=== PATIENT | female | born 1945 | race Caucasian/White ===

== ENCOUNTER 2022-04-10 15:55 | Outpatient (CLI) | payer MEDICARE, SELFPAY ==
--- OUTSIDE RECORDS SUMMARY | 2022-04-10 16:01 | XMS_ITS | Clinical Summary ---
:1945 Author Organization [facility] [place] [address] Care Team Providers Name Role Phone John Harley Unavailable Christen Christiansen DO Primary Care Provider Allergies Active Allergy Reactions Severity Noted Date Comments Alendronate Sodium Nausea Only 05/12/2019 Medications Medication Sig Dispensed Refills Start End Date Status Date polyethylene glycol Take 17 g by mouth 0 Active (MIRALAX; GLYCOLAX) 17 g once daily. 4 powder for solution docusate (COLACE) 100 mg Take 1 capsule by 0 01 Active capsule mouth once daily. 6 medication order -Magnesium Citrate by Pure E ncapsulations 150 mg for sleep and constipation: Take 2 capsules at bedtime. Can increase to 3 capsules nightly. 0 Active composerIndications: -Jarrows Bone Up Ultra: Take 2 capsules three times daily with meals. 1 Age-related osteoporosis or, continue your: without fracture, Vitamin -Shaklee Osteomatrix: Take 2 caps twice daily with food. D deficiency, -Shaklee Elizabeth-Nany multivitam in: Take 1 tablet daily. (vit D 500 IU) Prediabetes, Hyperlipidemia, unspecified hyperlipidemia type, Primary insomnia Multivitamins with 0 A ctive Fluoride (MULTI-VITAMIN ORAL) atorvastatin (LIPITOR) 20 Take 1 Tablet (20 90 Tablet 3 Active mg tabletIndications: mg) by mouth at 2 Pure hypercholesterolemia bedtime. 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 Prediabetes 03/06/2012 Age-related osteoporosis without current pathological fracture 04/06/2011 Overview: Dx and started on alendronate 03/2018. D id not tolerate. Started on Actonel. ACP (advance care planning) 03/15/2011 Left gluteus medius tendinosis 02/28/2011 Left lumbar radiculitis 02/28/2011 Degeneration of lumbar or lumbosacral intervertebral d isc 02/28/2011 SI (sacroiliac) pain 11/30/2010 Hammertoe 11/06/2010 Screen for colon cancer 02/21/2010 Overview: Colonoscopy 01/2010 normal repeat in 10 y ears Presbyopia 02/28/2007 VITREOUS DEGENERATION-R>L 09/08/2004 HYPERCHOLESTEROLEMIA, PURE 11/28/2000 Constipation - functional 11/28/2000 LEIOMYOMA, UTERUS NOS 01/26/2000 STATE, FEMALE CLIMACTERIC 01/26/2000 Resolved Problems Problem Noted Date Resolved Date Hyperlipidemia 09/13/2020 02/23/2021 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 12/23/2017 PAIN IN JOINT, SHOULDER 05/22/2005 MALAISE AND FATIGUE NEC 05/22/2005 EPICONDYLITIS, LATERAL 05/22/2005 FIBROMATOSIS, PLANTAR FASCIAL 05/22/2005 Encounters Date Type Specialty Care Team Description 03/20/2022 Office Visit [address] G[address] RD Medical Nutrition Therapy; Telehealth 03/19/2022 Travel 01/31/2022 Office Visit Christen Christiansen, DO Medic ation Management; Fatigue 01/30/2022 Travel from Last 3 Months Immunizations Name Administration Dates Next Due AMB INFLUENZA IIV3 (AGE 65+ YRS) PF 03/19/2018, 03/20/2017 (Flu Clinic Only) AMB Influenza, IIV3 (Age >=3 04/13/2011, 04/18/2010, 008 years)(Flu Clinic Only) Amb Influenza, Inact (High-dose) (Flu 03/22/2014 Clinic Only) COVID-19 vaccine ([employer] 01/09/2022, 04/20/2021, , 30mcg/0.3mL) PF, MDV 08/13/2020 Influenza Virus, Unspecified 03/19/2022 Influenza, High-dose Inactivated 04/01/2019, 03/09/2016, Influenza, High-dose Quadrivalent 03/07/2021 Inactivated Influenza, IIV3 (Age >=3 years) 04/15/2013, 03/28/2012, 04/01, 05/02/2006, 04/24/2005, 04/19/2003 Influenza, IIV4 04/01/2019 Influenza, Inactivated AIIV4 (Age 65+ 03/07/2021, 03/09/2020 Years) Preserv Free Pneumococcal Poly,23-Valent 11/26/2008 (Pneumovax) Pneumococcal conj 13-Valent (Prevnar 07/29/2015 13) Td (Age >=7 Years) 05/22/2005 Td, Preservative Free (age >= 7 10/26/2015 Years) Zoster (Shingrix-RZV, recombinant) 01/20/2019, 10/21/2018 Zoster (Zostavax-ZVL, live) 11/07/2011 Family History Medical History Relation Name Comments Brain cancer Brother 2 Survived gliobla stoma 20 yrs. Dementia now. Other Brother 3 MVA Alcoholism Brother 4 Cancer Father Other Father blood cancer, AA A Diabetes Grandchild Cancer-breast Maternal Aunt age 76 Stroke Mother several Genetic Other Mother: HTN, CVA , hyperchol, dec @ 83 of pneumonia s/p ba d CVA~Father: AAA, bladder CA, dec @ 82 of meta static bladder CA, OA~Son: TI DM at 7yo~cataract- Father~Grandson: TI DM at 11yo~Grpr: CAD, ovarian CA in 90s, colon CA in 80s~Bro: CAD dx in 40s* Hyperlipidemia Sister Diabetes Son Relation Name Status Comments Brother 1 Alive Brother 2 Alive Brother 3 Brother 4 Father Grandchild Maternal Aunt Maternal Grandfather Maternal Grandmother Mother Other Paternal Grandfather Paternal Grandmother Sister Alive Son Social History Tobacco Use Types Packs/Day Years Used Date Never Smoker 0 Smokeless Tobacco: Never Used Tobacco Cessation: Counseling Given: No Alcohol Use Standard Drinks/Week Comments Yes 2 (1 standard drink = 0.6 oz pure 1 glas s of wine 1-2 times a month alcohol) Alcohol Habits Answer Date Recorded How often do you have a drink Not asked containing alcohol? How many drinks containing alcohol do Not asked you have on a typical day when you are drinking? How often do you have six or more Not asked drinks on one occasion? Comment: 1 glass of wine 1-2 times a month 2020 Sex Assigned at Date Recorded Not on file COVID-19 Exposure Response Date Recorded In the last 10 days, have you been in contact with No / Unsu re 03/19/2022 1:04 PM CDT someone who was confirmed or suspected to have Coronavirus/COVID-19? 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 Respiratory Rate 15 09/18/2021 1:50 PM CDT Oxygen Saturation 96% 02/24/2021 2:14 PM CDT Inhaled Oxygen Concentration - - Weight 85.3 kg (188 lb) 01/31/2022 8:44 AM CDT Height 163.8 cm (5' 4.5) 09/18/2021 1:50 PM CDT Body Mass Index 31.77 09/18/2021 1:50 PM CDT Plan of Treatment Upcoming Encounters Date Type Specialty Care Team Description 04/13/2022 Orders Only [facility] Health Maintenance Due Date Last Done Comments Tdap 1956 COVID-19 vaccine series (5 - 03/06/2022 01/09/2022, 021, Booster for Pfizer series) 09/03/2020, Additiona l history exists BMI (ht and wt on same day) for 09/18/2022 09/18/2021, 01/30, age 18+ 07/12/2020, Additional history exists Depression screening for age 12+ 09/18/2022 09/18/2021, , 07/12/2020, Additional history exists Medicare Wellness for age 65+ 09/18/2022 09/18/2021, 2020, 05/12/2019, Additional history exists Tetanus booster 10/25/2025 10/26/2015, 05/22/2005 Pneumococcal series for age 65+ Completed 07/29/2015, 10/30 Zoster (shingles) series for age Completed 01/20/2019, , 50+ 11/07/2011 DEXA/DXA scan for age 65+ Completed 10/03/2020, 04/22/2018 , 06/03/2014, Additional history exists Hepatitis C screening for age Completed 01/31/2022 18-79 Influenza for age 65+ Completed 03/19/2022, 03/07/2021, 03/07/2021, Additional history exists Procedures Procedure Name Priority Date/Time Associated Diagnosis Comme nts ANTI HCV Routine 01/31/2022 9:24 AM Need for hepatitis C R esults for this CDT screening test procedure are in the results section. HEMOGLOBIN A1C Routine 01/31/2022 9:24 AM Prediabetes Results for this SCREENING CDT procedure are i n the results section. from Last 3 Months Results HEMOGLOBIN A1C SCREENING (01/31/2022 9:24 AM CDT) P athologist Signature HEMOGLOBIN A1C 6.0 <=6.4 % 01/31/2022 [facility] SCREENING 7:37 PM CDT LABORATORY-CENT RAL LABORATORY Specimen Anatomical Collection Method / Collection Time Recei juany Time (Source) Location / Volume Laterality Blood BLOOD SPECIMEN / Venipuncture / 01/31/2022 9:24 2021 9:24 Unknown Unknown AM CDT AM CDT Narrative [facility] LABORATORY-CENTRAL LABORAT ORY - 01/31/2022 7:37 PM CDT ? (<5.7%) ?Normal ? (5.7% to 6.4%) ? Indicates pr ediabetes ? (>=6.5%) ? Confirms diabetes Falsely low levels may be seen with: Recent Transfusion, Recent Significant B lood Loss, Hemolytic Diseases, or Falsely elevated levels may be seen with : Untreated Anemias, Splenectomy Christen Christiansen DO CHEMISTRY Performing Organization Address City/[facility]/ZIP Code Phon e Number [facility] [id number] [facility] [place] [address] LABORATORY-CENTRAL 2000 LABORATORY ANTI HCV (01/31/2022 9:24 AM CDT) [facility] gist Method Time Signature HEPATITIS C Non-Reacti Non-Reacti 02/01/2022 [facility] ANTIBODY ve ve 6:44 PM CDT LABORATORY-[facility] TR[facility] LABORATORY Comment: Antibodies to HCV not detected; does not exclude the possibility of exposure to HCV. Specimen Anatomical Collection Method / Collection Time Recei juany Time (Source) Location / Volume Laterality Blood BLOOD SPECIMEN / Venipuncture / 01/31/2022 9:24 2021 9:24 Unknown Unknown AM CDT AM CDT Christen Christiansen DO SEND OUTS Performing Organization Address City/State[place] [facility] [place] [facility] [id number] [place] [address] LABORATORY-CENTRAL 2000 LABORATORY from Last 3 Months Insurance Payer Benefit Plan / Subscriber ID Effective Dates Phone Addre ss Type Group MEDICARE PART A - MEDICARE PART A [id number] 2008-Prese ATTN: CLAIMS HB USE ONLY HB ONLY nt [address] 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
--- NOTE | 2022-04-10 16:15 | CRLHL7_ITS ---
For Patients: As a result of the Cures Act, medical imaging exams and procedure reports are released immediately into your electronic medical record. You may view this report before your referring provider. If you have questions, please contact your health care provider. BILATERAL SCREENING MAMMOGRAM WITH COMPUTER-AIDED DETECTION AND TOMOSYNTHESIS TECHNIQUE: CC and MLO views were obtained. These mammographic images have been obtained using full-field digital technique. These mammographic images were interpreted with the benefit of computer-aided detection. Breast Tomosynthesis was used in this interpretation. COMPARISON FILM: 03/22/21, 03/21/20, 02/03/19. FINDINGS: There are scattered areas of fibroglandular density IMPRESSION: There is no radiographic evidence for malignancy. ASSESSMENT: BI-RADS Category 1: Negative RECOMMENDATION: Routine screening mammogram in 1 year. A lay language report of this examination will be provided to the patient. Nasir Marques M.D. Diagnostic Radiologist [email or web address] VIVIANA/talib / be/Dictated by: Nasir Marques MD @ 04/11/2022 11:02:00 AM (Electronically Signed)
== END 2022-04-10 15:56 | disposition home or self-care (01) ==
LOC: MAMMO 15:59
PROVIDERS: Visit Provider Family Medicine
DX: Z12.31 Encounter for screening mammogram for malignant neoplasm of breast (principal)
CPT/HCPCS: 77063; 77067

== ENCOUNTER 2022-06-12 10:30 | Outpatient (RCR) | payer MEDICARE, SELFPAY ==
--- NOTE | 2022-06-06 11:50 | PT.OPE ---
PT [facility] Outpatient Eval PT [facility] Outpatient Eval Start: 06/06/22 10:32 Freq: Status: Active Protocol: Document 06/06/22 10:33 LSL (Rec: 06/06/22 10:52 LSL [id number]) E-signed By Willa Holguin PT Physical Therapy Outpatient Evaluation Insurance Information Recert Due Date 07/27/22 Insurance Name Medicare Eyewitness Surveillance,[facility] Medical Diagnosis B knee OA Treating Diagnosis weakness, pain, impaired gait Referring MD Holland Subjective Subjective Patient has been having knee pain for a couple years and it is really painful after I get up when I sit too long. I had a cortisone injection in the left knee in October and in both knees in March and it definitely helped because the pain is less when it occurs. My granddaughter found me a free recumbent bike/elliptical . For years my and I walked faithfully for 45' every morning, but now that is not happening with the weather. My doesn't drive anymore and I don't drive in busy areas, so getting to the mall doesn't happen. Pt. describes the pain as real tight in the front now, but before the cortisone is was really painful. 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 is a 77 y/o female who presents with B knee pain and impaired gait pattern that is worse after sitting for a short period of time and attempting to walk. She feels the cortisone shots have been helpful in decreasing her pain but without full relief. She has significant hip weakness and LBP. Both her knees and low back will benefit from a HEP addressing her hip weakness in addition to working on her knee flexibility, which currently is more limited on the right. Treatment will be geared toward establishing and monitoring a HEP for a month and working on core stabilization using therex and NM re-ed to decrease her back pain in transitional movement and help support her knees. Primary Functional Limitations walking, stairs, transitioning to walking after sitting Plan of Care Rehabilitation Potential Excellent Physical Therapy Goals SHORT TERM GOALS: (3-4 weeks) 1. Pt. able to ride her home bike/elliptical for 20 minutes . 2. Pt. compliant with HEP. 3. Pt. to report decreased pain in B knees to 3/10 or less with walking after sitting. Coordination/Communication With Referral Source Treatment Plan/Direct Interventions Gait Training,Manual Therapy, Neuromuscular Re-ed,Self-Care/ Home Management,Therapeutic Exercises Frequency/Duration 1x/week 4 weeks Patient Will Be Discharged From Therapy Skills Plateau,Independent w/ HEP,Independently Progressing Evaluation Billing Untimed Code Treatment Minutes 20 Complexity Low Certification Information Initial Certification Date 06/06/22 Ending Certification Date 07/27/22 Provider Signature Shows Agreement With POC & Medical Necessity Physician Signature & Date Requested Please Sign/Date Here Physician Comment/Change : Physician NPI Number #
== END 2022-08-15 13:48 | disposition home or self-care (01) ==
PROVIDERS: Visit Provider Orthopaedic Surgery Sports Medicine
DX: M17.0 Bilateral primary osteoarthritis of knee (principal); Z51.89 Encounter for other specified aftercare
CPT/HCPCS: 97110; 97140; 97161

== ENCOUNTER 2023-03-01 09:00 | Outpatient (RCR) | payer MEDICARE, SELFPAY ==
--- NOTE | 2023-03-01 10:03 | PT.OPDN ---
PT [facility] Outpatient Daily Note PT [facility] Outpatient Daily Note Start: 02/11/23 15:36 Freq: Status: Active Protocol: Document 03/01/23 09:23 CJT (Rec: 03/01/23 10:02 CJT [id number]) E-signed By Julius Dempsey, PT PT OP Daily Progress Note Visit Information Note Type Daily Note Visit Number 3 Insurance Authorized Visits tbd Physician Authorized Visits eval and treat Insurance Information Recert Due Date 05/13/23 Insurance Name [facility] Medical Diagnosis Osteoarthritis of both knees Treating Diagnosis M25.563 - B knee pain M79.606 - B leg pain Referring Christen Beltran Subjective Subjective Pt presents with significant increase in her knee pain bilaterally. Notes that her pain has been very bad in the mornings but has been exacerbated over the past week or so. Her pain seems to get a little better with movement. Pt describes this pain as a deep ache. Preferred Name Christen Christiansen Home Exercise Home Exercise Comments [id number] Objective Other/Pertinent Objective R knee ROM - 8-115 L knee ROM - 7-118 Patient Instructed in Risks/Benefits Yes Therapeutic Exercise Therapeutic Exercise Minutes (minutes) 18 Therapeutic Exercise: To Restore Bike - 10 minutes Functional Status SLR 2 x 10 ea Supine HS stretch x 60 ea Gastroc stretch on slant board x 60 Manual Therapy Techniques Manual Therapy Minutes (minutes) 24 Manual Therapy Techniques STM to B gastroc, soleus, quad , adductor bundle to reduce tissue tension and improve extensibility. Grade I, II mobilizations to patella and tibiofemoral joint to facilitate motion and reduce pain. Treatment Minutes Timed Code Treatment Minutes 42 Total Treatment Time 42 Billing Units Manual Therapy Units 2 Therapeutic Exercise Units 1 Assessment/Impression Assessment/Impression Karls knee pain appears to be the cause of osteoarthritis . She has not had x-rays of her knee since August 2021 - today we made a request for this x-ray report via [facility] in [place]. At this time I do think x-rays of both knees would be vital to determine the extent of the joint space narrowing in Lois's knees. I encouraged her to reach out to her PCP or Dr. Holland to make this request - pt agrees. Pts knee extension AROM is significantly limited today compared to her initial evaluation with me on 02/12/23. I suspect this is due to swelling within her knee joints bilaterally. Today Lois and I reviewed some basic quad strengthening exercises for maintaining her strength with hopes of limiting irritation to her knees. Printout was given for I completion. We will hold off on scheduling more visits for Lois at this time as she is interested in pursuing her options including surgical intervention at this time. Plan of Care Physical Therapy Goals STG - To be completed in 2-3 weeks: 1. Pt to report reduction in B leg pain by factor of 2 upon standing after sitting for greater than 15 minutes so that she may sit with friends for coffee without debilitating pain. 2. Pt will demo at least 5 degrees of ankle DF bilaterally with knees extended as indication of increased gastroc length to reduce risk of cramping and pain upon stretching. LTG - To be completed in 6 weeks: 1. Pt to be I with HEP so that she may I manage progression of symptoms. 2. Pt will report ability to stand after prolonged period of sitting without increase in leg pain so that she may go for walks with her family after dinner without pain. Daily Plan of Care Continue per POC
== END 2023-03-26 11:09 | disposition home or self-care (01) ==
PROVIDERS: PCP Family Medicine; Visit Provider Family Medicine
DX: M17.0 Bilateral primary osteoarthritis of knee (principal); M62.89 Other specified disorders of muscle; M25.562 Pain in left knee; M25.561 Pain in right knee; M79.605 Pain in left leg; M79.604 Pain in right leg; Z51.89 Encounter for other specified aftercare
CPT/HCPCS: 97110; 97140; 97161

== ENCOUNTER 2023-04-01 10:20 | Day surgery (SDC) | payer MEDICARE, SELFPAY ==
[2023-04-01] VITALS (20 sets, daily range): BP systolic 93–161; BP diastolic 67–100; PULSE 54–89; RESP 14–20; TEMP 35.7–36.3; O2SAT 92–100
--- NOTE | 2023-04-01 10:48 | CRLHL7_ITS ---
For Patients: As a result of the Cures Act, medical imaging exams and procedure reports are released immediately into your electronic medical record. You may view this report before your referring provider. If you have questions, please contact your health care provider. Indication: Postop Technique: Right knee two views Findings/Impression: Hardware from a right total knee arthroplasty is in satisfactory position. Bone alignment is normal. No sign of acute fracture. Postop changes are within normal limits. Dictated by Nasir Marques MD @ 04/02/2023 9:17:08 AM (Electronically Signed)
[2023-04-01] MEDS: ACETAMINOPHEN 500 MG TABLET 1000 MG PO ×2 (11:05→18:44)
[2023-04-01] MEDS: OXYCODONE (CR) 10 MG TAB.ER.12H PO (11:05)
[2023-04-01] MEDS: SODIUM CHLORIDE 0.9 % (FLUSH) 10 ML SYRINGE IVF (11:10)
[2023-04-01] MEDS: LACTATED RINGERS 1000 ML 1,000 ML 100 ML IV (11:10)
[2023-04-01] MEDS: MIDAZOLAM HCL 1 MG/ML inj IVP (11:35)
[2023-04-01] MEDS: fentaNYL 100 MCG/2 ML inj IVP (11:35)
--- NOTE | 2023-04-01 11:39 | SUR.PREOP ---
TIME?OUT:?1130, right knee PT/RN/MDA?VERIFICATION?OF?SURGICAL?SITE,?PROCEDURE,?AND?CONSENT OBTAINED?PRIOR?TO?INVASIVE?PROCEDURE.
--- NOTE | 2023-04-01 11:47 | W.PM.H&PU ---
History & Physical Update History & Physical Update H&P Reviewed and patient assessed: No changes noted
[2023-04-01] MEDS: CEFAZOLIN 2 GM in 0.9 % SODIUM CHLORIDE Mini-bag 100 ML IVPB ×2 (11:48→17:32)
--- NOTE | 2023-04-01 13:46 | P.ORPRC_ITS ---
Procedure Note Date of procedure: 04/01/23 Procedure: PREOPERATIVE DIAGNOSIS: 1. Right knee osteoarthritis, primary, severe POSTOPERATIVE DIAGNOSIS: 1. Right knee osteoarthritis, primary, severe PROCEDURE: 1. Right total knee arthroplasty SURGEON: Prashant Holland MD. ASSET MANAGEMENT COORDINATOR: Kenneth Meléndez Pac - Of note, a skilled veterinary assistant technician was critical for this case to aid in patient positioning, tissue retraction, limb manipulation/positioning, and closure. ANESTHESIA: Spinal anesthetic IMPLANTS: DePuy J&J all cemented TKA - Attune PS femur size 7, size 5 tibia with a 50 mm stem, 7 mm poly spacer, 35 mm patella TOURNIQUET: 90 min at 300 torr EBL: 50 ml COMPLICATIONS: None evident INDICATIONS: The patient is a pleasant 77-year-old female who has experienced severe right knee pain and difficulty bearing weight. Workup included x-rays which revealed severe osteoarthrosis in the knee. Given the deformity, the dysfunction, and the pain, as well as the failure of nonoperative management, recommendation was made for surgery. FINDINGS: Full-thickness chondral loss diffusely throughout the medial compartment with degenerative meniscus pathology. Significant patellofemoral chondromalacia. Do a lesser degree lateral compartment chondromalacia. There was also significant cystic change within the distal femur medial femoral condyle as well as proximal medial tibial plateau consistent with subchondral cystic change of osteoarthrosis. DESCRIPTION OF PROCEDURE: Following a thorough discussion of risks, benefits, and alternatives consent was obtained and the right knee was marked. The patient was brought to the operating room and placed supine on the operating table. Induction of anesthesia was undertaken. 1 g IV Ancef and 1 g tranexamic acid was administered within 1 hr of incision preoperatively. Proper time-out was performed identifying proper patient, site, procedure. The operative extremity was prepped and draped in the appropriate sterile fashion using ChloraPrep after the patient was positioned supine with all bony prominences well padded. A longitudinal, anterior, midline skin incision was made starting approximately 3cm proximal to the superior pole of the patella and advanced distal to the tibial tubercle. A median parapatellar arthrotomy was created. A medial subperiosteal sleeve was created with knife, palmer elevator and curved osteotome. The retropatellar fatpad was resected and the synovium in the suprapatellar pouch excised to visualize the anterior femoral cortex. Femoral preparation was performed via an intramedullary guide. Step drill allowed access into the femoral canal. The distal cutting guide was placed with 5? of valgus and 10 mm cut on the distal femur. Femur was sized using a posterior referencing guide in 3? of external rotation. This found have a best fit with the sizing noted above. The 4 in 1 cutting block was then placed, and the distal femur shaped accordingly. The box cut was then created and the trial implant inserted to confirm appropriate fit. We turned our attention to the proximal tibia. Extramedullary guide was utilized for cutting with the goal of being 90 degree cut from the mechanical axis of the tibia in the varus/valgus plane utilizing tibial crest as the primary alignment. Initially a 2 mm resection was performed from the medial tibial plateau. Ultimately, balancing was achieved in both flexion and extension in both varus and valgus. The knee was able to achieve full extension as well comfortably. Of note, we did use a 50 mm stem on the tibial component for secondary support due to the cystic change within the proximal medial tibial plateau in the event this were to be poor quality bone and lose the cortical support. The patella was initially measured and found have a thickness of 23 mm. It was resected back to approximately 13.5 mm. It was sized to be a best fit with as noted above. This was drilled, trial placed. All trials were placed and found to have an excellent stability and balance. At this stage, trial implants were removed, the knee was thoroughly irrigated with normal saline, and the cement was mixed. After irrigation, the knee was thoroughly dried, and cement placed, with the real tibial and femoral implants placed along with the patella. Trial poly spacer was placed and confirmed to have excellent range of motion and full extension, and the real poly spacer opened and inserted. All extra cement was removed, and a 3 min Betadine soak performed. Finally, a final irrigation round with normal saline was performed. Closure performed with 0 Vicryl and #0 Stratafix for the quad te ndon/retinaculum. 2-0 Vicryl for the subcutaneous and 4-0 Stratafix for subcuticular closure. Dressings were applied and the patient was awoken from anesthesia after the tourniquet deflated and transferred the PACU in stable condition. A skilled veterinary assistant technician was critical for this case to aid in patient positioning, tissue retraction, bone exposure, limb manipulation/positioning, patient safety, and closure. PLAN: 1. Weight bear as tolerated operative extremity. 2. 23 hr perioperative antibiotics. 3. Ice. 4. PT/OT consults for ambulation assistance/mobility education. 5. Social work consult for discharge planning. 6. DVT prophylaxis with at SCDs, Elver Hose, and aspirin twice daily.
--- NOTE | 2023-04-01 14:17 | W.ANESCHARGE ---
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
--- NOTE | 2023-04-01 14:49 | W.PM.NB ---
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 Images saved: Yes Medications given in 5ml increments after negative aspiration: Ropivicaine %: 0.5 mL: 20 Needle gauge: 20 Decadron (mg): 10 Precedex (mcg): 25 Patient tolerated procedure well: Yes Additional comments: Needle noted adjacent to nerve Block Charges Block Charge (with Pro Fee): Femoral Nerve Use of Ultrasound Machine for Block: Yes- US Guidance/pain block
--- NOTE | 2023-04-01 14:49 | W.PM.NB ---
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
--- NOTE | 2023-04-01 14:49 | W.ANESCHARGE ---
Anesthesia Charges Start Date/Time Anesthesia Start Date: 04/01/23 Anesthesia Start Time: 11:39 Stop Date/Time Anesthesia Stop Date: 04/01/23 Anesthesia Stop Time: 14:12 Summary Extremes of Age - Over 70 or under 1: MDA
--- NOTE | 2023-04-01 14:51 | SUR.PHASEI ---
patient met discharge criteria per anesthesia
[2023-04-01] MEDS: OXYCODONE 5 MG TABLET PO ×2 (15:23→22:27)
[2023-04-01] MEDS: LACTATED RINGERS 1000 ML 1,000 ML 75 ML IV (15:29)
--- NOTE | 2023-04-01 15:51 | P.IMCN_ITS ---
Date of Consult Consult date: 04/01/23 Requesting Physician: Orthopedics Primary Care Provider: Christen Christiansen DO Consult Narrative Reason for consult: Medical management Narrative: Lois Braden is a 77 year old female past medical history significant for hyperlipidemia, osteoarthritis is POD#0 status post right total knee arthroplasty with Dr. Holland. Patient reports pain is relatively well managed currently, more like a toothache. Tolerating orals without nausea or vomiting. There have been no perioperative complications or nursing concerns reported. Estimated total blood loss documented as 50 ml. Updated and reviewed the active medical problems, past medical history, past surgical history, social history, allergies and medications in our electronic EMR. Review of Systems Narrative: REVIEW OF SYSTEMS: Complete review of systems performed and negative unless otherwise stated in HPI or below. PFSH PFSH Medical History Mild aortic regurgitation ?I35.1 - Nonrheumatic aortic (valve) insufficiency (ICD-10) Squamous cell carcinoma Prediabetes ?R73.03 - Prediabetes (ICD-10) Degeneration of lumbar or lumbosacral intervertebral disc ?M51.37 - Other intervertebral disc degeneration, lumbosacral region (ICD-10) Hyperlipidemia ?E78.5 - Hyperlipidemia, unspecified (ICD-10) Surgical History H/O: hysterectomy ?Z90.710 - Acquired absence of both cervix and uterus (ICD-10) Status post left foot surgery (11/02/15) ?Z98.890 - Other specified postprocedural states (ICD-10) Social History What is your current living situation?: I presently have a place to live Problems where you live: no known problems In the past 12 months, utilities in danger of being shut off: no In past 12 months, lack of transportation kept you from medical appts, meetings, work, or getting things needed for daily living: no In the past 12 mos, have been you worried that your food would run out before you had money to buy more?: never true In the past 12 mos, the food you bought just didn't last and you didn't have money to buy more?: never true Highest level of school completed/degree received: don't know Smoking Status: Never smoker Do you use any of these nicotine containing products: None Second hand tobacco smoke exposure: No How often do you have a drink containing alcohol: monthly or less Alcohol type: wine AUDIT-C Alcohol total score: 1 Non-prescribed substance use: denies use Caffeine: No How often does anyone, including family, friends and others, physically hurt you : never How often does anyone, including family, friends and others, insult or talk down to you: never How often does anyone, including family, friends and others, threaten you with harm: never How often does anyone, including family, friends and others, scream or curse at you: never Meds Home Medications and Allergies Home Medications Medication Instructions Recorded Confirmed Type atorvastatin 20 mg tablet 20 mg PO DAILY 05/01/22 04/01/23 History acetaminophen 500 mg tablet 500 mg PO Q6H PRN 12/13/22 04/01/23 History (Tylenol Extra Strength) multivitamin 1 tab PO DAILY 03/28/23 04/01/23 History Allergies Allergy/AdvReac Type Severity Reaction Status Date / Time alendronate sodium Allergy Gastrointestinal Verified 03/07/23 13:24 Upset Exam Narrative: Exam Narrative: PHYSICAL EXAM General: Sitting up in bed, very pleasant, conversant, NAD HEENT: Normocephalic, atraumatic, sclera white, EOMI, oral mucosa moist Cardiovascular: RRR, S1S2. No pitting edema Pulmonary: CTA bilaterally without rhonchi, rales, expiratory wheezes. No dyspnea Abdominal: Soft, nondistended, NTTP Neurological: Alert, answering questions appropriately, cranial nerves intact, no focal findings Extremities: No gross joint deformity or swelling. Postoperative dressing in place, dry. Neurovascularly intact Skin: Warm, dry. Const: Vital Signs, click to edit/add: Vital Signs - 24 hr 04/01/23 10:52 04/01/23 11:35 04/01/23 14:09 Temperature 97.3 F L 97.1 F L Pulse Rate 89 67 60 Respiratory Rate 20 20 15 Blood Pressure 140/90 H 147/82 H 121/73 Pulse Oximetry 97 97 94 Oxygen Delivery Me thod Room Air Nasal Cannula Room Air Oxygen Flow Rate 2 04/01/23 14:15 04/01/23 14:20 04/01/23 14:25 Temperature 97.1 F L 97.1 F L 97.1 F L Pulse Rate 60 60 55 L Respiratory Rate 16 14 19 Blood Pressure 113/74 123/77 129/81 Pulse Oximetry 94 94 93 Oxygen Delivery Me thod Room Air Room Air Room Air Oxygen Flow Rate 04/01/23 14:30 04/01/23 14:35 04/01/23 14:40 Temperature 97.1 F L 97.1 F L 97.1 F L Pulse Rate 57 L 59 L 59 L Respiratory Rate 15 14 15 Blood Pressure 135/80 135/78 130/84 Pulse Oximetry 93 95 96 Oxygen Delivery Me thod Room Air Room Air Room Air Oxygen Flow Rate Assessment and Plan Assessment and plan (1) Osteoarthritis of right knee: Problem comment: POD#0 s/p right TKA. Perioperative management including pain control, anticoagulation, therapy per Orthopedic Surgery. Plan to return home with and daughter in law. May resume home medications upon discharge. Hospital medicine team will sign off. Please contact our service with any questions or concerns. Status: Chronic
[2023-04-01] MEDS: ONDANSETRON 2 MG/ML inj 4 MG IVP ×2 (17:16→20:54)
--- NOTE | 2023-04-01 19:22 | PC.NURSE ---
Nursing Care Hours: [id number] Pt this shift arrived from PACU alert and oriented. Pain treated per eMAR. Pt became nauseated after med administration. Cool wash cloth given with soda crackers. Interventions effected until pt transferred from bed to chair, then nausea increased. Treated per eMAR, treatment effective. Transfer using walker and gait belt with 2 assist, tolerated fair. Pt needed frequent verbal cues where and how to move, still needing extra assistance with pulling chair up closer to pt. Ate 25% of meal. Discussed taking future pain medication with food to prevent nausea. VSS, pedal pulses present, bandage CDI. No void this shift, reported to oncoming nurse.
[2023-04-01] MEDS: 0.9 % SODIUM CHLORIDE 500 ML IV (20:25)
[2023-04-01] MEDS: SENNOSIDES 1 TAB TABLET 2 TAB PO (20:54)
[2023-04-01] MEDS: ASPIRIN 81 MG TABLET EC PO (20:54)
--- NOTE | 2023-04-01 22:41 | PC.NURSE ---
End of shift nursing note, care provided from [id number]: Pt alert and oriented. Vitals stable, rates pain 3/10, tolerable to R knee. Pt intermit. nausea, pt states likely r/t prior Oxycodone, req less at next admin as she states I've never taken it before, PRN Oxycodone 2.5mg admin and PRN Zofran admin prior. No emesis this shift. Pt states overall improvement throughout shift. Pt had attempted to void at commode to no avail, PRN NS bolus began per order, bladder scanned immediately as well and 715ml shown, bolus stopped and pt straight cathed, 950ml output. Lr continues at 75ml/hr at this time. Up w/ Ax1, walker and gaitbelt. Was able to stand at side of bed for a few min in evening prior to bed. Cryo cuff in place, ice replaced. Tolerating crackers and sips of water. Dressing CDI. IS at bedside, not using currently d/t recovering nausea, pt states understanding of use and will use when able. Pt has call light within reach and using appropriately.
[2023-04-02 00:11] VITALS: BP 172/83; PULSE 72; RESP 18; TEMP 36; O2SAT 95
[2023-04-02] MEDS: ACETAMINOPHEN 500 MG TABLET 1000 MG PO ×3 (00:16→11:34)
[2023-04-02] MEDS: CEFAZOLIN 2 GM in 0.9 % SODIUM CHLORIDE Mini-bag 100 ML IVPB (00:23)
[2023-04-02] MEDS: LORazepam 0.5 MG TABLET PO (00:23)
[2023-04-02 02:25] VITALS: BP 133/79; PULSE 76; RESP 20; TEMP 36; O2SAT 95
[2023-04-02] MEDS: OXYCODONE 5 MG TABLET PO ×2 (02:32→07:35)
[2023-04-02 06:44] LABS: Hematocrit 33.3 % (33.0-51.0); Hemoglobin* 11.1 gm/dL (12.0-16.0); Lymphocytes Percent Auto 9.6 % (20-44); Mean Corpuscular HGB Conc 33 gm/dL (32-36); Mean Corpuscular Hemoglobin 33 pg (26-34); Mean Corpuscular Volume 97 fL (80-100); Monocytes Percent Auto 4.5 % (0.0-11.0); Neutrophils Percent Auto 85.9 % (42.0-72.0); Platelet Count* 174 K/uL (140-440); RDW Coefficient of Variation % 12.8 % (11.5-15.5); Red Blood Count 3.42 m/uL (4.00-5.20); White Blood Count* 7.92 K/uL (4.50-11.00)
--- NOTE | 2023-04-02 06:46 | PC.NURSE ---
[id number]: Patient pleasant and cooperative. Dressing to R. knee C/D/I. Notable weakness in R. leg. Afebrile. Pain controlled w/PRN Oxycodone. Eating and voiding.
[2023-04-02 06:47] LABS: Slide Review Reflex No
[2023-04-02 06:51] LABS: Sodium* 130 mmol/L (135-149)
[2023-04-02 06:52] LABS: Potassium* 3.8 mmol/L (3.6-5.1)
[2023-04-02 06:54] LABS: Creatinine* 0.6 mg/dL (0.5-1.5); Est. Creatinine Clearance* 39.39; Estimated Glomerular Filt Rate 91 ml/min
[2023-04-02 06:55] LABS: Blood Urea Nitrogen* 12 mg/dL (7-30)
[2023-04-02 07:00] VITALS: PULSE 66; RESP 18
[2023-04-02 07:24] VITALS: BP 123/71; PULSE 66; RESP 18; TEMP 36.2; O2SAT 96
[2023-04-02 07:27] VITALS: O2SAT 96
--- NOTE | 2023-04-02 08:56 | PM.ORPN ---
Subjective Subjective Date Seen: 04/02/23 Principal diagnosis: Status postop day 1 right total knee arthroplasty Interval history: Patient reports doing well. Acute events overnight include urinary retention, straight cath successful. Now voiding without issue. Pain managed with scheduled and PRN medications, ice. DVT prophylaxis: 81 mg aspirin by mouth twice daily, bilateral knee high Elver stockings, SCDs, walking. Complains of mild dizziness when sitting. Was experiencing nausea, since improving. Denies fevers, chills, aches, vomiting, CP, SOB/[place]. Her [id number] and are present. Ortho Exam Narrative Exam Narrative: -Patient appears comfortable; no apparent acute distress -Alert and oriented times 3 -Operative knee mildly swollen; soft tissues supple; no ecchymosis; no erythematous streaking Warmth appropriate -Surgical dressing clean, dry, intact; no drainage -Bilateral calfs soft; no significant swelling, edema, tenderness, erythema, discoloration, warmth, or palpable cords -2+ DP/PT pulses, intact dermatomes and myotomes distally (5/5 strength) Const Vital Signs, click to edit/add: Vital Signs - 24 hr 04/01/23 10:52 04/01/23 11:35 04/01/23 14:09 Temperature 97.3 F L 97.1 F L Pulse Rate 89 67 60 Pulse Rate [Right Pulse Oximeter] Respiratory Rate 20 20 15 Blood Pressure 140/90 H 147/82 H 121/73 Blood Pressure [Left Arm] Blood Pressure [Right Arm] Pulse Oximetry 97 97 94 Oxygen Delivery Method Room Air Nasal Cannula Room Air Oxygen Flow Rate 2 04/01/23 14:15 04/01/23 14:20 04/01/23 14:25 Temperature 97.1 F L 97.1 F L 97.1 F L Pulse Rate 60 60 55 L Pulse Rate [Right Pulse Oximeter] Respiratory Rate 16 14 19 Blood Pressure 113/74 123/77 129/81 Blood Pressure [Left Arm] Blood Pressure [Right Arm] Pulse Oximetry 94 94 93 Oxygen Delivery Method Room Air Room Air Room Air Oxygen Flow Rate 04/01/23 14:30 04/01/23 14:35 04/01/23 14:40 Temperature 97.1 F L 97.1 F L 97.1 F L Pulse Rate 57 L 59 L 59 L Pulse Rate [Right Pulse Oximeter] Respiratory Rate 15 14 15 Blood Pressure 135/80 135/78 130/84 Blood Pressure [Left Arm] Blood Pressure [Right Arm] Pulse Oximetry 93 95 96 Oxygen Delivery Method Room Air Room Air Room Air Oxygen Flow Rate 04/01/23 14:45 04/01/23 15:00 04/01/23 15:00 Temperature 96.3 F L Pulse Rate 54 L Pulse Rate [Right Pulse Oximeter] 61 Respiratory Rate 18 18 Blood Pressure Blood Pressure [Left Arm] 146/100 H 126/85 Blood Pressure [Right Arm] Pulse Oximetry 95 99 Oxygen Delivery Method Room Air Room Air Oxygen Flow Rate 04/01/23 15:15 04/01/23 15:30 04/01/23 15:45 Temperature 96.4 F L 97.1 F L Pulse Rate Pulse Rate [Right Pulse Oximeter] 61 59 L 58 L Respiratory Rate 18 18 18 Blood Pressure Blood Pressure [Left Arm] 146/76 H 151/89 H 161/89 H Blood Pressure [Right Arm] Pulse Oximetry 94 97 97 Oxygen Delivery Method Room Air Room Air Room Air Oxygen Flow Rate 04/01/23 16:00 04/01/23 17:00 04/01/23 18:00 Temperature 96.3 F L Pulse Rate Pulse Rate [Right Pulse Oximeter] 55 L 58 L 60 Respiratory Rate 18 20 20 Blood Pressure Blood Pressure [Left Arm] 139/93 H 93/67 109/78 Blood Pressure [Right Arm] Pulse Oximetry 92 100 99 Oxygen Delivery Method Room Air Room Air Room Air Oxygen Flow Rate 04/01/23 19:00 04/01/23 20:00 04/01/23 23:00 Temperature 97.3 F L 97.3 F L Pulse Rate Pulse Rate [Right Pulse Oximeter] 54 L 62 Respiratory Rate 20 20 Blood Pressure Blood Pressure [Left Arm] 123/69 137/79 Blood Pressure [Right Arm] Pulse Oximetry 96 95 95 Oxygen Delivery Method Room Air Room Air Oxygen Flow Rate 0 0 04/02/23 00:11 04/02/23 02:25 04/02/23 07:24 Temperature 96.8 F L 96.8 F L 97.1 F L Pulse Rate Pulse Rate [Right Pulse Oximeter] 72 76 66 Respiratory Rate 18 20 18 Blood Pressure Blood Pressure [Left Arm] 172/83 H 133/79 Blood Pressure [Right Arm] 123/71 Pulse Oximetry 95 95 96 Oxygen Delivery Method Room Air Room Air Room Air Oxygen Flow Rate 04/02/23 07:27 Temperature Pulse Rate Pulse Rate [Right Pulse Oximeter] Respiratory Rate Blood Pressure Blood Pressure [Left Arm] Blood Pressure [Right Arm] Pulse Oximetry 96 Oxygen Delivery Method Oxygen Flow Rate Assessment and Plan Assessment and plan (1) Osteoarthritis of right knee: Problem details: POD#0 s/p right TKA. Perioperative management including pain control, anticoagulation, therapy per Orthopedic Surgery. Plan to return home with and daughter in law. May resume home medications upon discharge. Hospital medicine team will sign off. Please contact our service with any questions or concerns. Status: Chronic (2) Status post total knee replacement, right: Problem details: POD 1 right total knee arthroplasty Status: Acute Plan - Complete 23 hour perioperative antibiotics. - PT/OT consult for education and assistance. - Social work consult for discharge planning - Prescribed analgesics as needed - DVT prophylaxis: 81 mg aspirin by mouth twice daily, bilateral knee high Elver Hose stockings and SCDs - Anticipation is for discharge to home with spouse, 04/02/2023 if the patient remains medically stable, pain is controlled, and they are safe with mobilization.
[2023-04-02] MEDS: ASPIRIN 81 MG TABLET EC PO (09:09)
[2023-04-02] MEDS: SENNOSIDES 1 TAB TABLET 2 TAB PO (09:09)
--- NOTE | 2023-04-02 12:41 | PC.NURSE ---
End of shift-- Pleasant and cooperative, alert and oriented patient discharged to home via wheelchair with spouse and daughter in law. VSS and pt is afebrile. SPO2 maintained >90% on RA. Pain appeared well managed with scheduled Tylenol and Oxycodone as needed. Dressing to right knee C/D/I and CMS WNL. Cryocuff in place and sent home with family. LS CTA. BS+ x4 and pt stated that she is passing flatus. Discharge education was provided including diagnosis info, symptoms to report, medications and follow up plan. All questions answered and SL was removed with tip intact.
== END 2023-04-02 11:30 | disposition home or self-care (01) ==
LOC: OR 10:23 → MEDSURG 10:26
PROVIDERS: PCP Family Medicine; Visit Provider Orthopaedic Surgery Sports Medicine
PROC: (CPT 27447; principal; 2023-04-01 12:15)
DX: M17.11 Unilateral primary osteoarthritis, right knee (principal); G89.18 Other acute postprocedural pain; R33.8 Other retention of urine; E78.5 Hyperlipidemia, unspecified; I35.1 Nonrheumatic aortic (valve) insufficiency
CPT/HCPCS: 27447; 01402; 36415; 64447; 64454; 73560; 76942; 82565; 84132; 84295; 84520; 85025; 97110; 97116; 97161; 97165; 97530; 97535; 99100; A9270; C1776; J0690; J1100; J2250; J2405; J2704; J2795; J3010; J7120

== ENCOUNTER 2023-05-17 09:00 | Outpatient (RCR) | payer MEDICARE, SELFPAY ==
--- NOTE | 2023-03-26 10:58 | PT.OPE ---
PT [facility] Outpatient Eval PT [facility] Outpatient Eval Start: 03/26/23 08:41 Freq: Status: Active Protocol: Document 03/26/23 08:41 ENM (Rec: 03/26/23 10:44 ENM [id number]) E-signed By Maryann Engel, DPT Physical Therapy Outpatient Evaluation Insurance Information Recert Due Date 06/18/23 Insurance Name Medicare B Medical Diagnosis unilateral primary osteoarthritis, right knee presence of right artificial knee joint right TKA 04/01/23 Treating Diagnosis pain in right knee, difficulty walking, decreased knee ROM, stiffness of bilateral knees Referring MD Loren Moy Lois presents to PT for pre- op appointment prior to R TKA. Patient states that she has been having issues with her knees for 1.5 years. She has tried conservative care which has not provided long lasting relief. Both of her knees are symptomatic and she plans to get the left knee done at some point. Has the most pain after sitting or laying for a while then going to get up. She has been having low back pains but she thinks that is due to compensation. Her lives with the patient but is 12+ years older than her so her stepdaughter will be available the first couple of days as needed. She stays active with walking in the morning. For additional information on home set up and assistive devices see pre-op flowsheet. Imaging: show severe bilateral knee osteoarthrosis. Primarily affecting medial compartment [id number] joint space loss. There is also subchondral sclerosis but also subchondral cystic change on the medial tibial plateau ( right greater than left). No acute fractures avulsions. Small to moderate tricompartmental osteophytes noted. Pain Comments on average 6/10 in both knees Date of Surgery (If applicable) 04/01/23 Current Work Status Retired Objective Other/Pertinent Objective Knee ROM L 0-6-116 R 0-3-111 hip ROM WFL pain free B strength: hip flexors 4/5 B knee extensors 4-/5 B gait/balance: Patient ambulates with decreased weight acceptance of LLE, decreased knee extension bilaterally, antalgic gait pattern Patient needing moderate use of hands on thigh to get to standing from sitting, very stiff with ambulation after sitting palpation/joint mobility: tender to palpation along medial joint line Assessment Assessment/Impression Patient is a 77 year old female presenting for pre op visit prior to R TKA on . Patient has difficulty with getting to standing or walking after sitting or laying down due to stiffness and significant knee pains. They are having their right knee replaced first with plans to have the left one done in the future. They will have support from their spouse and stepdaughter at home after surgery. Upon assessment patient displays decreased knee ROM, decreased quad strength and antalgic gait pattern. She is very stiff and painful with transferring from sitting to standing. Patient will be seen post operatively to reassess impairments that will be addressed with skilled care. Lois would greatly benefit from skilled PT to progress strength, ROM and ambulation post operatively in order to perform all household and work duties without significant difficulty or discomfort. Primary Functional Limitations sitting to standing, ambulation, stairs Plan of Care Rehabilitation Potential Good Physical Therapy Goals After pre-op visit: ? Patient will be independent with HEP ? Patient will verbalize knowledge of stair navigation and proper sequencing ? Patient will have knowledge on home adaptations and use of assistive devices post operatively ? Patient will have knowledge of edema management Coordination/Communication With Referral Source Treatment Plan/Direct Interventions Gait Training,Ice/Cold/ Vasopneumatic,Joint Mobilization,Manual Therapy, Neuromuscular Re-ed,Self-Care/ Home Management,Therapeutic Activities,Therapeutic Exercises Frequency/Duration 1x visit prior to surgery on 04/01/23. Patient scheduled to start outpatient PT s/p R TKA on 04/05/23. Has HEP to start with pre-operatively. Patient Will Be Discharged From Therapy Completion of LTG(s), Independent w/HEP Evaluation Billing Untimed Code Treatment Minutes 25 Complexity Low Certification Information Initial Certification Date 03/26/23 Ending Certification Date 06/18/23 Provider Signature Shows Agreement With POC & Medical Necessity Physician Signature & Date Requested Please Sign/Date Here Physician Comment/Change : Physician NPI Number #
--- NOTE | 2023-04-05 10:04 | PT.OPDN ---
[facility] Daily Note [facility] Daily Note Start: 03/26/23 08:41 Freq: Status: Active Protocol: Document 04/05/23 07:41 ENM (Rec: 04/05/23 09:56 ENM [id number]) E-signed By Maryann Engle DPT PT OP Daily Progress Note Visit Information Note Type Re-Evaluation Visit Number 2 Insurance Information Recert Due Date 06/28/23 Insurance Name Medicare B Medical Diagnosis unilateral primary osteoarthritis, right knee presence of right artificial knee joint right TKA 04/01/23 Treating Diagnosis pain in right knee, difficulty walking, decreased knee ROM, impaired transfers Referring MD Pimentel Subjective Subjective Patient states that she had surgery on Saturday then went home Saturday. She was not able to take oxycodone due to nausea and vomiting. Now she is taking extra strength tylenol every 6 hours, celebrex in the morning and supper. She has had great family support since her is not able to physically help. She doesn't feel like she needs help at night. Right now she is still needing help to get her leg into the bed. At first she had trouble getting out of her recliner but now it is easier. Has tried to do her exercises at least once a day. She has been icing consistently. She feels like it doesn't hurt as much now but she is really tired. Is getting around alright with use of a 2WW. Pain Comments 5/10 all the times Home Exercise Home Exercise Comments pre op exercises: ankle pumps, heel slides, quad set, SAQ, LAQ, hamstring set, SLR, knee extension stretch Objective Other/Pertinent Objective Knee ROM L 0-6-116 R 0-2-75 strength: quad set good SLR modA to perform gait/balance: Patient ambulates with moderate UE reliance on 2WW, step to gait pattern with RLE leading Performing sit to stands with RLE extended swelling/observation: minimal bruising in posterior lateral thigh superior patella: L 47 cm R 52 cm mid patella: L 43 cm R 48.5 cm inf patella: L 39.5 cm R 42 cm Patient Instructed in Risks/Benefits Yes Therapeutic Exercise Therapeutic Exercise Minutes (minutes) 24 Therapeutic Exercise: To Restore -supine quad set 1x10 Functional Status -supine SAQ 1x10 -ankle pumps 1x15 -heel slides 2x10 (educated patient on how to perform at home with strap assist) -1x10 seated heel slide with slider Gait & Stair Training Gait Training/Stairs Minutes (minutes) 6 Gait & Stair Training Comments Patient ambulating 141' with 2WW initially step to pattern progressing to step through mechanics. Patient starting to allow increased knee flexion of RLE throughout gait cycle Treatment Minutes Untimed Code Treatment Minutes 20 Timed Code Treatment Minutes 30 Total Treatment Time 50 Billing Units Therapeutic Exercise Units 2 Re-Evaluation Units 1 Assessment/Impression Assessment/Impression Patient returns to PT for evaluation after R TKA 04/01/23 . At this time is having difficulties with sit to stands and getting legs in/out of bed independently. They have had consistent support from family at home. Able to navigate home environment well with assistive devices and 2WW. Pain has been a 5/10 on average, taking tylenol and celebrex for pain relief. Upon assessment patient displays decreased knee ROM, impaired gait, impaired transfers, decreased quad strength and swelling. Able to complete SAQ without assist, good quad set, requiring modA for SLR. Ambulates using a 2WW with step to pattern progressing to step through by end of session. Impairments consistent with s/p TKA. Lois would benefit from skilled PT to address impairments stated above in order to perform all functional and recreational activities without significant difficulty or discomfort. Plan of Care Physical Therapy Goals In 3-4 weeks: 1. Patient will improve knee ROM to > 100 degs for improved ease of STS transfers 2.Patient will ambulate with improved mechanics and less than 3/10 knee pain with or without AD >150' for improved household/community mobility 3. Patient will perform x5 SLR with improved form and strength to improve supine<> sit transfer In 6-8 weeks: 1. Patient will improve knee ROM to >115 in order to comfortably navigate stairs for household and community navigation 2. Patient will be able to walk up to 10 minutes without use of AD or report of increased knee pain 3. Patient will return to full household duties Daily Plan of Care Continue per POC Daily Plan of Care Comments Plan: continue progressing ROM progress to standing exercises as tolerated Nustep MT as needed Recertification Information Initial Certification Date 03/26/23 Recertification Start Date 04/05/23 Recertification Due Date 12/29/23 Provider Signature Shows Agreement With POC & Medical Necessity Physician Comment/Change Comment or Changes Physician NPI Number #
--- NOTE | 2023-05-03 11:26 | PT.OPDN ---
PT [facility] Daily Note PT [facility] Out[facility] Daily Note Start: 03/26/23 08:41 Freq: Status: Active Protocol: Document 05/03/23 09:09 CJT (Rec: 05/03/23 11:26 CJT [id number]) E-signed By Julius Dempsey, PT PT OP Daily Progress Note Visit Information Note Type Recert/Progress Note Visit Number 10 Insurance Information Recert Due Date 06/28/23 Insurance Name Medicare B Medical Diagnosis unilateral primary osteoarthritis, right knee presence of right artificial knee joint right TKA 04/01/23 Treating Diagnosis pain in right knee, difficulty walking, decreased knee ROM, impaired transfers Referring MD Pimentel Subjective Subjective Pts top concern at this time is not sleeping well. Went to [employer] dinner theatre and was able to go up/down steps there with help of her sons. Home Exercise Home Exercise Comments pre op exercises: ankle pumps, heel slides, quad set, SAQ, LAQ, hamstring set, SLR, knee extension stretch Access Code: [email or web address] URL: [email or web address] Date: 04/26/2023 Prepared by: Maryann Engle Exercises - Supine Hip Adduction Isometric with Ball - 3 x daily - 7 x weekly - 1 sets - 10 reps - 5s hold - Hooklying Clamshell with Resistance - 3 x daily - 7 x weekly - 1 sets - 10 reps - 5s hold - Supine Heel Slide - 3 x daily - 7 x weekly - 1 sets - 10 reps - Standing Terminal Knee Extension with Resistance - 3 x daily - 7 x weekly - 1 sets - 10 reps - 5s hold - Standing Hip Abduction with Counter Support - 3 x daily - 7 x weekly - 1 sets - 10 reps Objective Other/Pertinent Objective Knee ROM R 0-0-112 Patient Instructed in Risks/Benefits Yes Therapeutic Exercise Therapeutic Exercise Minutes (minutes) 35 Therapeutic Exercise: To Restore Bike x 10 minutes Functional Status Marching with hands at rail 2 x 20 Hip abduction with hands at rail 2 x 10 ea Hip extension with hands at rail 2 x 10 ea Heel raises with hands at rail 2 x 10 ea Squats with hands at rail 2 x 10 4 step-ups 2 x 10 4 step-downs 2 x 10 Manual Therapy Techniques Manual Therapy Minutes (minutes) 10 Manual Therapy Techniques STM to R quad, HS, posterior knee, gastroc, and tibialis anterior to reduce tissue tension and improve extensibility. Treatment Minutes Timed Code Treatment Minutes 45 Total Treatment Time 45 Billing Units Manual Therapy Units 1 Therapeutic Exercise Units 2 Assessment/Impression Assessment/Impression Lois has been progressing well during her time in therapy. Today her knee ROM measures 0-112 degrees with pain noted about the anterior knee with flexion. He hamstring strength is full at this time although quad strength was challenging to assess as Lois had a sharp pain in the anterior knee with knee extension testing. In general her pain has been well controlled and her only complaint at this time is trouble sleeping. She also notes that her L knee has begun to have more pain than her R knee as of late. Recommend continued therapy services to address deficits and return pt to highest level of function. Plan of Care Physical Therapy Goals In 3-4 weeks: 1. Patient will improve knee ROM to > 100 degs for improved ease of STS transfers MET 2.Patient will ambulate with improved mechanics and less than 3/10 knee pain with or without AD >150' for improved household/community mobility MET 3. Patient will perform x5 SLR with improved form and strength to improve supine<> sit transfer MET In 6-8 weeks: 1. Patient will improve knee ROM to >115 in order to comfortably navigate stairs for household and community navigation 2. Patient will be able to walk up to 10 minutes without use of AD or report of increased knee pain 3. Patient will return to full household duties Daily Plan of Care Continue per POC Daily Plan of Care Comments Plan: continue progressing ROM progress to standing exercises as tolerated Nustep MT as needed Recertification Information Physician NPI Number #
== END 2023-07-12 09:58 | disposition home or self-care (01) ==
PROVIDERS: PCP Family Medicine; Visit Provider Orthopaedic Surgery Sports Medicine
DX: M17.11 Unilateral primary osteoarthritis, right knee (principal); Z96.651 Presence of right artificial knee joint; M25.561 Pain in right knee; R26.2 Difficulty in walking, not elsewhere classified; Z74.09 Other reduced mobility; Z51.89 Encounter for other specified aftercare
CPT/HCPCS: 97110; 97116; 97140; 97161; 97164

== ENCOUNTER 2023-07-09 11:13 | Outpatient (CLI) | payer MEDICARE, SELFPAY ==
--- OUTSIDE RECORDS SUMMARY | 2023-07-09 11:15 | XMS_ITS | Encounter Summary ---
Author Name Unknown Organization [facility] Address [address] [place] [address] Care Team Providers Care Hospital Pharmacy Technician Name Role Phone Unavailable Primary Care Provider Unavailabl e Encounter Details Date Type Department Care Team (Latest Contact Info) Description 12/01/2022 Travel Social History Tobacco Use Types Packs/Day Years Used Date Smoking Tobacco: Never Assessed Sex and Gender Information Value Date Recorded Sex Assigned at Not on file Gender Identity Not on file Sexual Orientation Not on file COVID-19 Exposure Response Date Recorded In the last 10 days, have yo u been in contact with someone who was confirmed or suspected to have Coronavirus/COVID-19? No / Unsure 12/01/2022 8:34 AM CDT documented as of this encounter Plan of Treatment Not on file documented as of this encounter Visit Diagnoses Not on filedocumented in this encounter
--- OUTSIDE RECORDS SUMMARY | 2023-07-09 11:15 | XMS_ITS | Clinical Summary ---
Author Name Unknown Organization [facility] Address [address] [place] [address] Care Team Providers Care Director Financial Planning Name Role Phone Christen Christiansen Primary Care Provider [phone] Rashid Campa DPM Unavailable [phone] Allergies No known active allergies Medications No known medications Active Problems Problem Noted Date Diagnosed Date ACP (advance care planning) 11/09/2015 Overview: Advance Care Planning 11/09/2015: ACP Facilitation Session: Lois Braden presented for ACP Facilitation session at a group session. She was accompanied by no one. Rashida Nayak information provided and resources reviewed. She currently wishes to give additional consideration to ACP She currently has the following questions or concerns about Advance Care Planning: none. Confirmed/documented legally designated decision maker(s). Follow-up meeting: not needed/applicable. Added by Dena Summers RN Advance Care Planning Liaison with Rashida Nayak Social History Tobacco Use Types Packs/Day Years Used Date Smoking Tobacco: Never Assessed Adolescent Education Answer Date Record ed Getting School Help Needed Not on file 03/24 Sex and Gender Information Value Date Recorded Sex Assigned at Not on file Gender Identity Not on file Sexual Orientation Not on file Last Filed Vital Signs Vital Sign Reading Time Taken Comments Blood Pressure 124/77 12/03/2022 9:41 AM CDT Pulse - - Temperature - - Respiratory Rate - - Oxygen Saturation - - Inhaled Oxygen Concentration - - Weight 81.7 kg (180 lb 3.2 oz) 12/03/2022 9:41 A M CDT Height 165.1 cm (5' 5) 12/03/2022 9:41 AM CDT Body Mass Index 29.99 12/03/2022 9:41 AM CDT Plan of Treatment Health Maintenance Due Date Last Done Comments ANNUAL REVIEW OF HM ORDERS 1943 DEXA 1943 LIPID 1988 RSV VACCINE ( & 60+) (1 - 1-dose 60+ series) 2003 FALL RISK ASSESSMENT 2008 DTAP/TDAP/TD IMMUNIZATION (1 - Tdap) 10/27/2015 10/26/2015, 05/22/2005, 05/22/2005 ADVANCE CARE PLANNING 11/08/2020 11/09/2015, 016 PHQ-2 (once per calendar year) 2022 COVID-19 Vaccine ( season) 2023 05/17/2022, 01/09/2022, 04/20/2021, Additional history exists INFLUENZA VACCINE (#1) 2023 , 03/18/2022, 03/07/2021, Additional history exists MEDICARE ANNUAL WELLNESS VISIT 09/20/2023 09/19/2022, 09/18/2021, 07/12/2020 Pneumococcal Vaccine: 65+ Years Completed 07/29/2015, 11/26/2008 ZOSTER IMMUNIZATION Completed 01/20/2019, 10/21/2018, 11/07/2011 HPV IMMUNIZATION Aged Out No longer e ligible based on patient's age to complete this topic IPV IMMUNIZATION Aged Out No longer e ligible based on patient's age to complete this topic MENINGITIS IMMUNIZATION Aged Out No l onger eligible based on patient's age to complete this topic RSV MONOCLONAL ANTIBODY Aged Out No l onger eligible based on patient's age to complete this topic Care Teams Director Financial Planning Relationship Specialty [place] [address] [place] [address] PCP - General Family Medicine 12/03/22 Rashid [address] [facility] [address] [place] [address] Assigned Musculoskeletal Provider 12/08/22
--- OUTSIDE RECORDS SUMMARY | 2023-07-09 11:15 | XMS_ITS | Referral Summary ---
Author Name Unknown Organization [facility] Address [address] [place] [address] Care Team Providers Care Dial Marker Name Role Phone CaneloChristen walsh Araseli HAYES Primary Care Provider [phone] Rashid Campa DPM Unavailable [phone] Allergies No known active allergies Medications No [...] 12/03/2022 9:41 AM CDT Plan of Treatment Not on file Care Teams Dial Marker Relationship Specialty [place] [address] [place], [place] [id number] PCP - General Family Medicine 12/03/22 Rashid Campa DPM [address] [facility] [address] [place] [address] Assigned Musculoskeletal Provider 12/08/22
--- OUTSIDE RECORDS SUMMARY | 2023-07-09 11:15 | XMS_ITS | Clinical Summary ---
Author Name Unknown Organization [facility] Address [place], [place] [address] Care Team Providers Care Airline Pilot Flight Instructor Name Role Phone John Harley Unavailable [phone] Christen Christiansen DO Primary Care Provider [phone] Allergies Active Allergy Reactions Criticality Noted Date Comments Alendronate Sodium Nausea Only 05/12/2019 Medications Medication Sig Dispensed Refills Start Date End Date Status medication order composerIndications:Age- related osteoporosis without fracture,Vitamin D deficiency,Prediabetes,H yperlipidemia, unspecified hyperlipidemia type,Primary insomnia -Magnesium Citrate by Pure Encapsulations 150 mg for sleep and constipation: Take 2 capsules at bedtime. Can increase to 3 capsules nightly. -Jarrows Bone Up Ultra: Take 2 capsules three times daily with meals. or, continue your: -Shaklee Osteomatrix: Take 2 caps twice daily with food. -Shaklee Elizabeth-Nany multivitamin: Take 1 tablet daily. (vit D 500 IU) 0 1 Active Multivitamins with Fluoride (MULTI-VITAMIN ORAL) 0 Active atorvastatin (LIPITOR) 20 mg tabletIndications:Pure hypercholesterolemia Take 1 Tablet (20 mg) by mouth at bedtime. 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 Prediabetes 03/06/2012 Age-related osteoporosis wit hout current pathological fracture 04/06/2011 Overview: AP T-score -2.6Dx and started on alendronate 03/2018. Did not tolerate. Started on Actonel. DEXA 10/10/22: T-scores AP: -2.4, LFN -1.2, RFN -1.9. FRAX 14.3%, 3.8%. Recommend advanced pharmacotherapy and repeat in 2 years. 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 09/08/2004 HYPERCHOLESTEROLEMIA, PURE 11/28/2000 Constipation - functional 11/28/2000 LEIOMYOMA, UTERUS NOS 01/26/2000 STATE, FEMALE CLIMACTERIC 01/26/2000 Resolved Problems Problem Noted Date Diagnosed Date Resolved Date Age-related osteoporosis without fracture 09/13/2020 10/21/2022 Hyperlipidemia 09/13/2020 02/23/2021 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 12/23/2017 PAIN IN JOINT, SHOULDER 05/02 MALAISE AND FATIGUE NEC 05/02 EPICONDYLITIS, LATERAL 05/22 FIBROMATOSIS, PLANTAR FASCIAL 05/22/2005 Encounters Date Type Department Care Team Description 06/21/2023 Telephone [facility] [address] [place] [address] Christen Christiansen DO request for a lift chair 05/31/2023 10:00 AM [facility] Telemedicine [facility] [address] [facility] [address] [place] [id number] Schem, Antonio Best MD Telehealth (No vitals taken); Consult (Age-related osteoporosis without fracture - Referred by Christen Christiansen DO//); Results (XR DXA BONE DENSITY 2 SITES AXIAL - 10/10/2022) 05/29/2023 Travel 05/21/2023 1:20 PM BLACK TOPPER Office Visit [facility] [address] [place] [address] James Haider, DPM Foot Problem (Left foot 4th toe,pain x3 weeks,has been soaking) 05/21/2023 Travel 05/19/2023 Travel 04/24/2023 10:50 AM CDT Office Visit [facility] [address] [place] [address] Christen Christiansen DO Recheck (Infected right ear canal, feels funny); Back Pain (Pain in lower back after spinal block for surgery on 04/01/2023); Immunization/Injectio n (Declined INSLY-61-aeciuri 6 weeks per surgeon /) 04/24/2023 Travel 04/22/2023 Travel from Last 3 Months Immunizations Name Administration Dates Next Due AMB INFLUENZA IIV3 (AGE 65+ YRS) PF (Flu Clinic Only) 03/19/2018,03/20/2017 AMB Influenza, IIV3 (Age >=3 years)(Flu Clinic Only) 04/13/2011,04/18/2010,04/27/2008 Amb Influenza, Inact (High-d ose) (Flu Clinic Only) 03/22/2014 COVID-19 vaccine (Fitbit NTGrouper 30mcg/0.3mL) PFJESSICA 01/09/2022,04/20/2021,09/03/2020,2020 Influenza Virus, Unspecified 03/19/2022 Influenza, High-dose Inactivated 04/01/2019,0 03/2016,03/22/2015 Influenza, High-dose Quadriv alent Inactivated 03/18/2022,03/07/2021 Influenza, IIV3 (Age >=3 years) 04/15/20 13,03/28/2012,04/22/2007,2005,04/24/2005,04/19/2003 Influenza, IIV4 04/01/2019 Influenza, Inactivated AIIV4 (Age 65+ Years) Preserv Free 03/18/2023,03/07/2021,03/09/2020 Pneumococcal Poly,23-Valent (Pneumovax) 11/26/2008 Pneumococcal conj 13-Valent (Prevnar 13) 07/29/2015 Td (Age >=7 Years) 05/22/2005 Td, Preservative Free (age > = 7 Years) 10/26/2015 Zoster (Shingrix-RZV, recombinant) 01/20/2019, Zoster (Zostavax-ZVL, live) 11/07/2011 Family History Medical History Relation Name Comments Brain cancer Brother 2 Survived gliobl astoma 20 yrs. Dementia now. Other Brother 3 MVA Alcoholism Brother 4 Cancer Father Other Father blood cancer, A AA Diabetes Grandchild Cancer-breast Maternal Aunt age 76 Stroke Mother several Genetic Other Mother: HTN, CV A, hyperchol, dec @ 83 of pneumonia s/p bad CVA~Father: AAA, bladder CA, dec @ 82 of metastatic bladder CA, OA~Son: TI DM at 7yo~cataract-Father~Grandson: TI DM at 11yo~Grpr: CAD, ovarian CA in 90s, colon CA in 80s~Bro: CAD dx in 40s* Hyperlipidemia Sister Diabetes Son Relation Name Status Comments Brother 1 Alive Brother 2 Brother 3 Brother 4 Father Grandchild Maternal Aunt Maternal Grandfather Maternal Grandmother Mother Other Paternal Grandfather Paternal Grandmother Sister Alive Son Social History Tobacco Use Types Packs/Day Years Used Date Smoking Tobacco: Never Passive Smoke Exposure: Never Smokeless Tobacco: Never Tobacco Cessation:Counseling Given: Yes Alcohol Use Standard Drinks/Week Comments Yes 2 (1 standard drink = 0.6 oz pure alcohol) 1 glass of wine 1-2 times a month PHQ-2 Answer Date Recorded PHQ-2 TOTAL SCORE 0 09/19/2022 Social Connections Answer Date Recorded Frequency of Communication with Friends and Fami ly 0 03/19/2023 Financial Resource Strain Answer Date R ecorded Difficulty of Paying Living Expenses 3 03/19/2023 Difficulty of Paying Living Expenses Not on file 03/19/2023 Food Insecurity Answer Date Recorded Worried About Running Out of Food in the Last Ye ar 1 03/19/2023 Transportation Needs Answer Date Record ed Lack of Transportation (Medical) 1 03/19/2023 Housing Stability Answer Date Recorded Unable to Pay for Housing in the Last Year 1 03/19/2023 Sex and Gender Information Value Date Recorded Sex Assigned at Not on file Gender Identity Not on file Sexual Orientation Not on file Obstetrics History Para Term AB IAB SAB Ectopic Multiple Livin g Live Births 4 4 3 1 0 0 0 0 0 4 Date Outcome GA Total Labor Labor/2nd/3rd Weight Sex Delivery Anes PTL Pat A1 A5 Name Cl in Term Term Term Last Filed Vital Signs Vital Sign Reading Time Taken Comments Blood Pressure 118/74 04/24/2023 10:49 AM CDT Pulse 80 04/24/2023 10:49 AM CDT Temperature 36.4 ??C (97.6 ??F) 05/26/2021 1:44 PM CS T Respiratory Rate 15 09/18/2021 1:50 PM CDT Oxygen Saturation 99% 04/24/2023 10:49 AM CDT Inhaled Oxygen Concentration - - Weight 77.8 kg (171 lb 9.6 oz) 04/24/2023 10:49 AM CDT Height 163.1 cm (5' 4.21) 03/19/2023 8:24 AM CD T Body Mass Index 29.26 03/19/2023 8:24 AM CDT Plan of Treatment Health Maintenance Due Date Last Done Comments COVID-19 vaccine series (2022- season) 2023 05/17/2022, 01/09/2022, 04/20/2021, Additional history exists Medicare Wellness for age 65+ 09/19/2023 09/19/2022, 09/18/2021, 07/12/2020, Additional history exists Depression screening for age 12+ 09/20/2023 09/19/2022, 09/18/2021, 07/20/2020, Additional history exists BMI (ht and wt on same day) for age 18+ 03/19/2024 03/19/2023, 01/24/2023, 11/22/2022, Additional history exists Tdap 10/22/2025 Postponed from 1954 (Provider discretion) Tetanus booster 10/25/2025 10/26/2015, 05/22/2005 Pneumococcal series for age 65+ Completed 07/29/2015, 11/26/2008 Zoster (shingles) series for age 50+ Completed 01/20/2019, 10/21/2018, 11/07/2011 DEXA/DXA scan for age 65+ Completed 2022, 10/03/2020, 04/22/2018, Additional history exists Influenza for age 65+ Completed 03/18/2023 , 03/19/2022, 03/18/2022, Additional history exists Care Teams Airline Pilot Flight Instructor Relationship Specialty Start [place] [address] [place] [address] PCP - General Family Practice 09/18/21 John Harley [address] [address] Dermatology Dermatology 07/27/15
--- OUTSIDE RECORDS SUMMARY | 2023-07-09 11:15 | XMS_ITS | Encounter Summary ---
Author Name Unknown Organization [facility] Address [address] [place] [address] Care Team Providers Care Gynecology Teacher Name Role Phone Christen Christiansen DO Primary Care Provider [phone] Reason for Visit * Reason Comments Pain Encounter Details Date Type Department Care Team (Late st Contact Info) Description 12/03/2022 9:45 AM CDT Office Visit [facility] [address] [facility] [address] [place], [place] [address] Rashid Campa DPM [address] [facility] [address] [place], [place] [id number] Toe ulcer, left, limited to breakdown of skin (H) (Primary Dx) Social History Tobacco Use Types Packs/Day Years [...] suspected to have Coronavirus/COVID-19? No / Unsure 12/03/2022 9:24 AM CDT documented as of this encounter Last Filed Vital Signs Vital Sign Reading [...] Mass Index 29.99 12/03/2022 9:41 AM CDT documented in this encounter Progress Notes * Rashid Campa DPM - 12/03/2022 9:45 AM CDT Foot & Ankle Surgery December 03, 2022 CC: fungus toe possibly infected I was asked to see Lois Braden regarding the chief complaint by: Dr. William Barton HPI: Pt is a 77 year old female who presents with above complaint. Multiple week history of left fourth toe pain without injury. 6 out of 10 pain when I put pressure on it, worse with pressure on it when I walk twice a day. She has soaked in Epsom salts twice a day and was recently put on Keflex by her PCP. She states she has 1 to 2 days of the antibiotic remaining. It was red and has been feeling better but is still sore. Previous left second and third hammertoe surgery approximately 10 years ago ROS: Pos for CC. The patient denies current nausea, vomiting, chills, fevers, belly pain, calf pain, chest pain or SOB. Complete remainder of ROS is otherwise neg. VITALS: Vitals: 12/03/22 0941 BP: 124/77 Weight: 81.7 kg (180 lb 3.2 oz) Height: 1.651 m (5' 5) PMH: No past medical history on file. SXHX: No past surgical history on file. MEDS: No current outpatient medications on file. No current facility-administered medications for this visit. ALL: No Known Allergies FMH: No family history on file. SocHx: Social History Socioeconomic History ??? Marital status: Spouse name: Not on file ??? Number of children: Not on file ??? Years of education: Not on file ??? Highest education level: Not on file Occupational History ??? Not on file Tobacco Use ??? Smoking status: Not on file ??? Smokeless tobacco: Not on file Substance and Sexual Activity ??? Alcohol use: Not on file ??? Drug use: Not on file ??? Sexual activity: Not on file Other Topics Concern ??? Not on file Social History Narrative ??? Not on file Social Determinants of Health Financial Resource Strain: Not on file Food Insecurity: Not on file Transportation Needs: Not on file Physical Activity: Not on file Stress: Not on file Social Connections: Not on file Intimate Partner Violence: Not on file Housing Stability: Not on file EXAMINATION: Gen: No apparent distress Neuro: A&Ox3, no deficits Psych: Answering questions appropriately for age and situation with normal affect Head: NCAT Eye: Visual scanning without deficit Ear: Response to auditory stimuli wnl Lung: Non-labored breathing on RA noted Abd: NTND per patient report Lymph: Neg for pitting/non-pitting edema BLE Vasc: Pulses palpable, CFT minimally delayed Neuro: Light touch sensation intact to all sensory nerve distributions without paresthesias Derm: The patient has a blister with a a 9 x 9 mm partial-thickness wound at the plantar distal left fourth toe without exposed fat and only mild erythema. There was purulent drainage noted after debriding the blister at the base the wound otherwise appears healthy MSK: Adductovarus left fourth hammertoe, which underlapped the left third toe. This is at least partially reducible Calf: Neg for redness, swelling or tenderness Assessment: 77 year old female with partial-thickness wound left fourth toe in setting of under lapping adductovarus fourth toe Medical Decision Making/Plan: Discussed etiologies, anatomy and options 1. Partial thickness wound left fourth toe in setting of underlapping adductovarus fourth toe -I personally reviewed and interpreted the patient's lower extremity history pertinent to today's visit, including imaging/labs, in preparation for initiating a treatment program. -Excisional debridement was performed, partial-thickness(limited to skin breakdown, no exposed subcutaneous fat), sharply debriding the wound, excising nonviable tissue to the above dimensions with atissue nipper -Wound care: Wash thoroughly, dry thoroughly, antibiotic ointment and a Band-Aid daily -Finish current antibiotics, no indication for new or extended course -Offloading: Comfortable shoes, minimize shoeless walking and limit time on feet as able -Consider percutaneous flexor tenotomy if the wound fails to heal or a new wound develops -Follow-up in 1 week for reassessment. To the ER if there is progressively worsens despite the above plan Follow up: 1 week or sooner with acute issues Patient's medical history was reviewed today Rashid Campa DPM FACFAS FACFAOM Podiatric Foot & Ankle Surgeon [place] [phone] Disclaimer: This note consists of symbols derived from keyboarding, dictation and/or voice recognition software. As a result, there may be errors in the script that have gone undetected. Please consider this when interpreting information found in this chart. documented in this encounter Plan of Treatment Not on file documented as of this encounter Procedures Procedure Name Priority Date/Time Associated Diagnosis Comments AR DEBRIDEMENT WOUND, UP TO 20 SQ CM Routine 12/03/2022 10:58 AM CDT Toe ulcer, left, limited to breakdown of skin (H) documented in this encounter Visit Diagnoses Diagnosis Toe ulcer, left, limited to breakdown of skin (H)- Primary documented in this encounter Care Teams Gynecology Teacher Relationship Specialty [place] [address] [place] [address] PCP - General Family Medicine 12/03/22 documented as of this encounter
--- OUTSIDE RECORDS SUMMARY | 2023-07-09 11:15 | XMS_ITS | Encounter Summary ---
Author Name Unknown Organization [facility] Address [address] [place] [address] Care Team Providers Care Summer Law Clerk Name Role Phone Christen Christiansen DO Primary Care Provider [phone] Encounter Details Date Type Department Care Team (Latest Contact Info) Description 12/03/2022 Travel Social History Tobacco Use Types Packs/Day [...] Diagnoses Not on filedocumented in this encounter Care Teams Summer Law Clerk Relationship Specialty [place] [address] [place] [address] PCP - General Family Medicine 12/03/22 documented as of this encounter
--- NOTE | 2023-07-09 11:30 | CRLHL7_ITS ---
For Patients: As a result of the Century Cures Act, medical imaging exams and procedure reports are released immediately into your electronic medical record. You may view this report before your referring provider. If you have questions, please contact your health care provider. BILATERAL SCREENING MAMMOGRAM WITH COMPUTER-AIDED DETECTION AND TOMOSYNTHESIS TECHNIQUE: CC and MLO views were obtained. These mammographic images have been obtained using full-field digital technique. These mammographic images were interpreted with the benefit of computer-aided detection. Breast Tomosynthesis was used in this interpretation. COMPARISON FILM: 04/10/22, 03/22/21,03/21/20. FINDINGS: There are scattered areas of fibroglandular density IMPRESSION: There is no radiographic evidence for malignancy. ASSESSMENT: BI-RADS Category 1: Negative RECOMMENDATION: Routine screening mammogram in 1 year. A lay language report of this examination will be provided to the patient. Antonio Cason M.D. Diagnostic/Nuclear Medicine Radiologist [email or web address] GEORGE/Dictated by: Antonio Cason MD @ 07/09/2023 12:04:00 PM (Electronically Signed)
== END 2023-07-09 11:14 | disposition home or self-care (01) ==
LOC: MAMMO 11:13
PROVIDERS: PCP Family Medicine; Visit Provider Family Medicine
DX: Z12.31 Encounter for screening mammogram for malignant neoplasm of breast (principal)
CPT/HCPCS: 77063; 77067

== ENCOUNTER 2024-03-30 09:17 | Day surgery (SDC) | payer MEDICARE, SELFPAY ==
[2024-03-30] VITALS (22 sets, daily range): BP systolic 94–156; BP diastolic 54–97; PULSE 53–79; RESP 14–20; TEMP 36.1–36.9; O2SAT 90–100; BMI 31.0
--- OUTSIDE RECORDS SUMMARY | 2024-03-30 09:24 | XMS_ITS | Referral Summary ---
Author Organization [facility] Address [address] [place] [address] Care Team Providers Care Client Manager Large Law Name Role Phone Christen Christiansen Primary Care Provider [phone] Rashid Campa DPM Unavailable [phone] Allergies No known active allergies Medications No [...] of Treatment Not on file Care Teams Client Manager Large Law Relationship Specialty [place] [address] [place], [place] [id number] PCP - General Family Medicine 12/03/22 Rashid Campa DPM [address] [facility] [address] [place] [address] Assigned Musculoskeletal Provider 12/08/22
--- OUTSIDE RECORDS SUMMARY | 2024-03-30 09:24 | XMS_ITS | Clinical Summary ---
Author Organization [facility] Address [address] [place] [address] Care Team Providers Care Receiving Manager Name Role Phone Christen Christiansen DO Primary Care Provider [phone] Rashid Campa DPM Unavailable [phone] Allergies No known active allergies Medications No [...] REVIEW OF HM ORDERS 1945 DEXA 1945 GLUCOSE 1945 LIPID 1983 FALL RISK ASSESSMENT 2008 DTAP/TDAP/TD IMMUNIZATION (1 - Tdap) 10/27/2015 10/26/2015, 05/22/2005, 05/22/2005 RSV VACCINE (1 - 1-dose 75+ series) 2018 ADVANCE CARE PLANNING 11/08/2020 11/09/2015, 016 PHQ-2 (once per calendar year) 2023 MEDICARE ANNUAL WELLNESS VISIT 09/20/2023 09/19/2022, 09/18/2021, 07/12/2020 COVID-19 Vaccine ( season) 2024 05/17/2022, 01/09/2022, 04/20/2021, Additional history exists INFLUENZA VACCINE (#1) 2024 2, 03/18/2022, 03/07/2021, Additional history exists Pneumococcal Vaccine: 65+ Years Completed 07/29/2015, 11/26/2008 [...] age to complete this topic Care Teams Receiving Manager Relationship Specialty [place] [address] [place] [place] [address] PCP - General Family Medicine 12/03/22 Rashid Campa DPM [address] [address] Assigned Musculoskeletal Provider 12/08/22
--- OUTSIDE RECORDS SUMMARY | 2024-03-30 09:24 | XMS_ITS | Clinical Summary ---
Author Organization [email or web address] Address [place], [place] [address] Care Team Providers Care Level Designer Name Role Phone CherriJohn mendoza Mau Unavailable [phone] Christen Christiansen DO Primary Care Provider [phone] Christen Pacheco RN Unavailable [phone] Allergies Active Allergy Reactions Criticality Noted Date [...] tablet daily. (vit D 500 IU) 0 09/14/19 21 Active Multivitamins with Fluoride (MULTI-VITAMIN ORAL) Active atorvastatin (LIPITOR) 20 mg tabletIndications:Pure hypercholesterolemia Take 1 Tablet (20 mg) by mouth at bedtime. 90 Tablet 3 10/29/19 24 Active acetaminophen (TYLENOL EXTRA STRGTH) 500 mg tablet Take 500 mg by mouth two times daily. 12/14/19 23 024 Discontin ued(*Iliana ent states no longer taking) clotrimazole (LOTRIMIN) 1 % creamIndications:Toe pain, left,Fungal infection of toenail,Tinea pedis of right foot Apply topically to affected area(s) two times daily. Apply to base of toes on right foot as needed 45 g 12/19/19 24 024 Discontin ued(*Med complete/ Regimen complete/ Level of care change) Active Problems Problem Noted Date Diagnosed Date [...] Primary insomnia 09/13/2020 Squamous cell carcinoma 07/29/2015 Overview (07/29/2015): On her right elbow, initially biopsied and then reexcised after pathology results. Prediabetes 03/06/2012 Age-related osteoporosis wit hout current pathological fracture 04/06/2011 Overview (10/21/2022): AP T-score -2.6Dx and started on alendronate 03/2018. Did not tolerate. Started on Actonel. DEXA 10/10/22: T-scores AP: -2.4, LFN -1.2, RFN -1.9. FRAX 14.3%, 3.8%. Recommend advanced pharmacotherapy and repeat in 2 years. ACP (advance care planning) 03/15/2011 Left gluteus medius tendinosis 02/28/2011 Left lumbar radiculitis 02/28/2011 Degeneration of lumbar or lumbosacral interverte bral disc 02/28/2011 SI (sacroiliac) pain 11/30/2010 Hammertoe 11/06/2010 Presbyopia 02/28/2007 VITREOUS DEGENERATION-R>L 09/08/2004 HYPERCHOLESTEROLEMIA, PURE 11/28/2000 Constipation - functional 11/28/2000 LEIOMYOMA, UTERUS NOS 01/26/2000 STATE, FEMALE CLIMACTERIC 01/26/2000 Resolved Problems Problem Noted Date Diagnosed Date Resolved Date Age-related osteoporosis without fracture 09/13/2020 10/21/2022 Hyperlipidemia 09/13/2020 02/23/2021 Screen for colon cancer 02/21/2010 04/ Overview (02/21/2010): Colonoscopy 01/2010 normal repeat in 10 years 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 12/23/2017 PAIN IN JOINT, SHOULDER 05/02 MALAISE AND FATIGUE NEC 05/02 EPICONDYLITIS, LATERAL 05/22 FIBROMATOSIS, PLANTAR FASCIAL 05/22/2005 Encounters Date Type Department Care Team Description 03/20/2024 Orders Only [facility] [address] [place] [address] Christen Christiansen, 1 scan: (1-Ord) 03/18/2024 03/18/2024 9:35 AM CDT Preop Visit [facility] [address] [place] [address] Christen Christiansen DO Preoperative Exam (Left Total Knee Arthoplasty on 03/30/2024 at [facility] with Dr. Prashant Pimentel MD [phone]) 03/18/2024 Travel 03/16/2024 Travel 01/28/2024 3:00 PM CDT Office Visit [facility] [address] [place] [address] Leo Kebede, DPM Consult (Left 4th toenail pain) 01/27/2024 Travel 01/14/2024 8:30 AM CDT Office Visit [facility] [address] [phone] Debbie Mcpherson PA Ear Problem (Impacted cerumen removal) 01/14/2024 Travel 01/09/2024 9:00 AM CDT Patient Outreach [facility] [address] [place] [address] Focused Care Management from Last 3 Months Immunizations Name Administration Dates Next Due AMB INFLUENZA IIV3 (AGE 65+ YRS) PF (Flu Clinic Only) 03/19/2018,03/20/2017 AMB Influenza, IIV3 (Age >=3 years)(Flu Clinic Only) 04/13/2011,04/18/2010,04/27/2008 Amb Influenza, Inact (High-d ose) (Flu Clinic Only) 03/22/2014 COVID-19 vaccine (I Do Now I Don't 30mcg/0.3mL) PF, MDV 01/09/2022,04/20/2021,09/03/2020,2020 Influenza Virus, Unspecified 03/19/2022 Influenza, High-dose Inactivated 024,03/18/2023,04/01/2019,2015,03/22/2015 Influenza, High-dose Quadriv alent Inactivated 03/18/2022,03/07/2021 Influenza, [...] Answer Date Recorded PHQ-2 TOTAL SCORE 0 10/29/2023 Social Connections Answer Date Recorded Frequency of Communication with Friends and Fami ly Not on file 03/19/2024 Financial Resource Strain Answer Date R ecorded [...] Outcome GA Total Labor Labor/2nd/3rd Weight Sex Type Anes PTL Pat A1 A5 Name Clin Term Term Term Last Filed Vital Signs Vital Sign Reading Time Taken Comments Blood Pressure 124/86 03/18/2024 9:37 AM CDT Pulse 75 03/18/2024 9:37 AM CDT Temperature 36.4 ??C (97.6 ??F) 05/26/2021 1:44 PM CS T Respiratory Rate 15 09/18/2021 1:50 PM CDT Oxygen Saturation 97% 03/18/2024 9:37 AM CDT Inhaled Oxygen Concentration - - Weight 84.7 kg (186 lb 11.2 oz) 03/18/2024 9:37 AM CDT Height 167 cm (5' 5.75) 03/18/2024 9:37 AM CDT Body Mass Index 30.37 03/18/2024 9:37 AM CDT Plan of Treatment Health Maintenance Due Date Last Done Comments RSV vaccine for adults or (1 - 1-dose 75+ series) 2018 COVID-19 vaccine series ( season) 2024 05/30/2023, 05/17/2022, 01/09/2022, Additional history exists Medicare Wellness for age 65+ 10/29/2024 10/29/2023, 09/19/2022, 09/18/2021, Additional history exists Depression screening for age 12+ 10/30/2024 10/31/2023, 10/29/2023, 10/29/2023, Additional history exists BMI (ht and wt on same day) for age 18+ 03/18/2025 03/18/2024, 12/19/2023, 10/29/2023, Additional history exists Tdap 10/22/2025 Postponed from 1954 (Provider discretion) Tetanus booster 10/25/2025 10/26/2015, 05/22/2005 Pneumococcal series for age 65+ Completed 07/29/2015, 11/26/2008 Zoster (shingles) series for age 50+ Completed 01/20/2019, 10/21/2018, 11/07/2011 DEXA/DXA scan for age 65+ Completed 2022, 10/03/2020, 04/22/2018, Additional history exists Influenza for age 65+ Completed 03/17/2024 , 03/18/2023, 03/18/2023, Additional history exists Procedures Procedure Name Priority Date/Time Associated Diagnosis Comments HEMOGLOBIN Routine 03/18/2024 10:21 AM CDT Preoperative examination Primary osteoarthritis of left knee EKG 12 LEAD Routine 03/18/2024 12:00 AM CDT Preoperative examination Primary osteoarthritis of left knee XR DXA BONE DENSITY 2 SITES AXIAL Routine 10/10/2022 9:43 AM CDT Age-related osteoporosis without fracture from Last 3 Months or Most Recently Relevant to Health Maintenance Results * HEMOGLOBIN (03/18/2024 10:21 AM CDT) HEMOGLOBIN 11.9 11.7 - 15.5 g/dL [facility] Blood BLOOD SPECIMEN / Unknown 03/18/2024 10:21 AM CDT 03/18/2024 10:22 AM CDT Christen Christiansen DO HEMATOLOGY SMR SITE [facility] [address] [place] [address], [facility] [address] [place] [address] * EKG 12 LEAD (03/18/2024 12:00 AM CDT) Christen Christiansen DO EKG ORD * (ABNORMAL) XR DXA BONE DENSITY 2 SITES AXIAL (10/10/2022 9:43 AM CDT) Anatomical Region Laterality Modality Spine, HIPS, HIPL, HIPR Other Impressions 10/15/2022 8:11 AM CDT Osteopenia. RECOMMENDATIONS: The National Osteoporosis Foundation recommends pharmacologic treatment for patients with T-scores of -2.5 or less, patients with prior history of fragility fractures, or patients with 10-year probability of greater than 3% at hips or greater than 20% of suffering major osteoporotic fractures. Recommend continued optimization of calcium and vitamin D intake through dietary means and/or supplementation and regular exercise. Consider pharmacologic therapy for osteopenia with increased fracture risk. Follow-up bone density reading in 2 years if therapy initiated to assess therapeutic efficacy. Carolyn Campo PA-C [facility] 10/15/2022 Narrative 10/15/2022 8:11 AM CDT For Patients: Results are automatically released to your [employer] ([employer]) account once available, in compliance with federal regulations. This means that you may see your results before your provider has had a chance to review them. Please allow 2-3 business days for your provider to comment on the results. XR DXA Bone Mineral Density (BMD) EXAM LOCATION: [facility] [address] [address] PATIENT NAME: Lois Braden DATE OF : 1945 EXAM DATE: 10/10/2022 REQUESTING PROVIDER: Christen Christiansen DO GENDER AT : female HEIGHT: 5' 4.25 (09/19/2022) WEIGHT: ??188 lb 11.2 oz (09/19/2022) MENOPAUSAL STATUS: Postmenopausal RACE/ETHNICITY: White RISK FACTORS: Height Loss (2 inches or more) and White Race CURRENT MEDICATION FOR BONE LOSS: NONE INDICATION: Follow-up of existing osteopenia COMPARISON DATE(S): 2020 DXA scans are compared to prior studies for a patient only when the two (or more) studies were performed on the same scanner. It is not possible to compare data generated on one scanner to data from another because there are not standards in DXA equipment. This applies even if the two scanners are made by the same pants cutter. PROCEDURE: Dual-energy x-ray absorptiometry performed with routine technique. Reporting is completed in the form of a T-score. The T-score represents the standard deviation from peak bone mass based on young healthy adult. A Z-score is used for diagnosis in premenopausal women, and for men under the age of 50. FINDINGS: RESULT LUMBAR SPINE L1 - L4 BMD: 0.887 g/cm2 T-Score: - 2.4 Z-Score: - 1.3 Change from prior in 2020: ??Decrease 4.0%. RESULTS FEMUR Left femoral neck BMD: 0.872 g/cm2 T-Score: - 1.2 Z-Score: + 0.5 Change from prior in 2020: ??Increase 0.6%. Right femoral neck BMD: 0.778 g/cm2 T-Score: - 1.9 Z-Score: - 0.2 Change from prior in 2020: ??Decrease 3.0%. Left hip BMD: 0.987 g/cm2 T-Score: - 0.2 Z-Score: + 1.3 Change from prior in 2020: ??Decrease 2.4%. Right hip BMD: 0.935 g/cm2 T-Score: - 0.6 Z-Score: + 0.9 Change from prior in 2020: ??Decrease 1.7%. WHO criteria: Normal: T-score at or above -1 SD Osteopenia: T-score between -1.1 and -2.4 SD Osteoporosis: T-score at or below -2.5 SD FRAX RISK CALCULATION (USED FOR OSTEOPENIA ONLY): 10-year probability of major osteoporotic fracture: 14.3%. 10-year probability of hip fracture: 3.8%. Christen Christiansen DO DEXA from Last 3 Months or Most Recently Relevant to Health Maintenance Care Teams Level Designer Relationship Specialty [place] [address] [place] [address] PCP - General Family Practice 09/18/21 John Harley [address] [address] Dermatology Dermatology 07/27/15 [place] [address] [place] [address] Primary Care RN Care Management Registered Nurse 10/31/23
--- NOTE | 2024-03-30 10:06 | W.PM.H&PU ---
History & Physical Update History & Physical Update H&P Reviewed and patient assessed: No changes noted
[2024-03-30] MEDS: LACTATED RINGERS 1000 ML 1,000 ML 100 ML IV ×2 (10:29→12:37)
[2024-03-30] MEDS: SODIUM CHLORIDE 0.9 % (FLUSH) 10 ML SYRINGE IVF (10:29)
[2024-03-30] MEDS: ACETAMINOPHEN 500 MG TABLET 1000 MG PO ×3 (10:33→22:55)
[2024-03-30] MEDS: OXYCODONE (CR) 10 MG TAB.ER.12H PO (10:33)
[2024-03-30] MEDS: MIDAZOLAM HCL 1 MG/ML inj IVP (11:28)
[2024-03-30] MEDS: fentaNYL 100 MCG/2 ML inj IVP (11:28)
--- NOTE | 2024-03-30 11:35 | SUR.PREOP ---
TIME?OUT:?1125, left knee PT/RN/MDA?VERIFICATION?OF?SURGICAL?SITE,?PROCEDURE,?AND?CONSENT OBTAINED?PRIOR?TO?INVASIVE?PROCEDURE.
[2024-03-30] MEDS: CEFAZOLIN 2 GM in 0.9 % SODIUM CHLORIDE Mini-bag 100 ML IVPB ×2 (12:10→20:21)
[2024-03-30] MEDS: TRANEXAMIC ACID 100 MG/ML INJ 1000 MG IV (12:15)
--- NOTE | 2024-03-30 12:37 | P.NB_ITS ---
Nerve Block Nerve Block Time Seen by Provider: 11:34 Date Seen: 03/30/24 Type of block requested by surgeon for post-operative analgesia: adductor canal Side: left Time out performed: Yes Verification of patient name: Yes Verification of date of : Yes Site marking: site marked Name of person performing procedure: Yayo Continuous monitoring Was continuous monitoring of O2 sat, B/P, assistant chief nursing officer, recorded every 15 minutes?: Yes Procedure Checklist: sterile prep, needles and gloves Ultrasound guided. Images saved: Yes Medications given in 5ml increments after negative aspiration: Ropivicaine %: 0.5 mL: 20 Needle gauge: 20 Decadron (mg): 10 Precedex (mcg): 25 Patient tolerated procedure well: Yes Additional comments: Needle noted adjacent to nerve Block Charges Block Charge (with Pro Fee): Femoral Nerve Use of Ultrasound Machine for Block: Yes- US Guidance/pain block
--- NOTE | 2024-03-30 12:37 | W.ANESCHARGE ---
Anesthesia Charges Start Date/Time Anesthesia Start Date: 03/30/24 Anesthesia Start Time: 12:04 Stop Date/Time Anesthesia Stop Date: 03/30/24 Anesthesia Stop Time: 14:13 Summary Extremes of Age - Over 70 or under 1: MDA
--- NOTE | 2024-03-30 12:38 | W.PM.NB ---
Nerve Block Nerve Block Time Seen by Provider: 11:34 Date Seen: 03/30/24 Type of block requested by surgeon for post-operative analgesia: geniculars Side: left Time out performed: Yes Verification of patient name: Yes Verification of date of : Yes Site marking: site marked Name of person performing procedure: Yayo Continuous monitoring Was continuous monitoring of O2 sat, B/P, cardiac nurse specialist, recorded every 15 minutes?: Yes Procedure Checklist: sterile prep, needles and gloves Medications given in 5ml increments after negative aspiration: Ropivicaine %: 0.5 mL: 9 Needle gauge: 25 Patient tolerated procedure well: Yes Block Charges Block Charge (with Pro Fee): Genicular Nerve Block Use of Ultrasound Machine for Block: No
--- NOTE | 2024-03-30 13:50 | W.ANESCHARGE ---
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
--- NOTE | 2024-03-30 14:13 | CRLHL7_ITS ---
For Patients: As a result of the Century Cures Act, medical imaging exams and procedure reports are released immediately into your electronic medical record. You may view this report before your referring provider. If you have questions, please contact your health care provider. INDICATION: Postop. TECHNIQUE: Two views of the left knee. FINDINGS: There is a left TKA. Components appear well seated. Adjacent postop soft tissue air. Dictated by Jacob Ivey MD @ 03/31/2024 8:09:19 AM (Electronically Signed)
--- NOTE | 2024-03-30 14:13 | P.ORPRC_ITS ---
Procedure Note Date of procedure: 03/30/24 Procedure: PREOPERATIVE DIAGNOSIS: 1. Left knee osteoarthritis, primary, severe POSTOPERATIVE DIAGNOSIS: 1. Left knee osteoarthritis, primary, severe PROCEDURE: 1. Left total knee arthroplasty - subvastus SURGEON: Prashant Holland MD. M48/M60 TANK DRIVER: OSMAN Mckenzie - Of note, a skilled assistant professor of history was critical for this case to aid in patient positioning, tissue retraction, limb manipulation/positioning, and closure. ANESTHESIA: Spinal anesthetic EBL: 50ml IMPLANTS: DePuy J&J all cemented TKA - Attune PS femur size 7, size 5 tibia, 5 mm poly spacer, 35 mm patella TOURNIQUET: 90 min at 300 torr COMPLICATIONS: None evident INDICATIONS: The patient is a pleasant 78-year-old female who has experienced severe left knee pain and difficulty bearing weight. Workup included x-rays which revealed severe osteoarthrosis in the knee. Given the deformity, the dysfunction, and the pain, as well as the failure of nonoperative management, recommendation was made for surgery. FINDINGS: Full-thickness chondral loss medial compartment as well as patellofemoral. To lesser degree lateral compartment chondromalacia. Moderate effusion upon entering the joint. DESCRIPTION OF PROCEDURE: Following a thorough discussion of risks, benefits, and alternatives consent was obtained and the left knee was marked. The patient was brought to the operating room and placed supine on the operating table. Induction of anesthesia was undertaken. 2 g IV Ancef and 1 g tranexamic acid was administered within 1 hr of incision preoperatively. Proper time-out was performed identifying proper patient, site, procedure. The operative extremity was prepped and draped in the appropriate sterile fashion using ChloraPrep after the patient was positioned supine with all bony prominences well padded. A longitudinal, anterior, midline skin incision was made starting approximately 3cm proximal to the superior pole of the patella and advanced distal to the tibial tubercle. A subvastus approach was utilized. A medial subperiosteal sleeve was created with knife, palmer elevator and curved osteotome. The retropatellar fatpad was resected and the synovium in the suprapatellar pouch excised to visualize the anterior femoral cortex. Femoral preparation was performed via an intramedullary guide. Step drill allowed access into the femoral canal. The distal cutting guide was placed with 5? of valgus and 11 mm cut on the distal femur. Femur was sized using a posterior referencing guide in 3? of external rotation. This found have a best fit with the sizing noted above. The 4 in 1 cutting block was then placed, and the distal femur shaped accordingly. The box cut was then created and the trial implant inserted to confirm appropriate fit. We turned our attention to the proximal tibia. Extramedullary guide was utilized for cutting with the goal of being 90 degree cut from the mechanical axis of the tibia in the varus/valgus plane utilizing tibial crest as the primary alignment. Initially a 2 mm resection was performed from the medial tibial plateau. Ultimately, balancing was achieved in both flexion and extension in both varus and valgus. The knee was able to achieve full extension as well comfortably. The patella was initially measured and found have a thickness of 24 mm. It was resected back to approximately 14 mm. It was sized to be a best fit with as noted above. This was drilled, trial placed. All trials were placed and found to have an excellent stability and balance. At this stage, trial implants were removed, the knee was thoroughly irrigated with normal saline, and the cement was mixed. After irrigation, the knee was thoroughly dried, and cement placed, with the real tibial and femoral implants placed along with the patella. Trial poly spacer was placed and confirmed to have excellent range of motion and full extension, and the real poly spacer opened and inserted. All extra cement was removed, and a 3 min Betadine soak performed. Finally, a final irrigation round with normal saline was performed. Closure performed with 0 PDS and #0 Stratafix for the quad tendon/retinaculum. 2-0 Vicryl/Stratafix for the subcutaneous and 4-0 Monocryl for subcuticular closure. Dressings were applied and the patient was awoken from anesthesia after the tourniquet deflated and transferred the PACU in stable condition. A skilled assistant professor of history was critical for this case to aid in patient positioning, tissue retraction, bone exposure, limb manipulation/positioning, patient safety, and closure. PLAN: 1. Weight bear as tolerated operative extremity. 2. 23 hr perioperative antibiotics. 3. Ice. 4. PT/OT consults for ambulation assistance/mobility education. 5. Social work consult for discharge planning. 6. DVT prophylaxis with at SCDs and aspirin twice daily.
[2024-03-30] MEDS: LACTATED RINGERS 1000 ML 1,000 ML 35 ML IV (14:25)
[2024-03-30] MEDS: LACTATED RINGERS 1000 ML 1,000 ML 75 ML IV ×2 (15:23→22:55)
--- NOTE | 2024-03-30 15:34 | P.IMCN_ITS ---
Date of Consult Patient: Ginny Patient Consult date: 03/30/24 Requesting Physician: Orthopedics Primary Care Provider: Christen Christiansen DO Consult Narrative Narrative: Lois Braden is a 78 year old female admitted to the hospital for left total knee arthroplasty. Procedures performed by Dr. Holland. There were no operative complications. Dr. Holland requests consultation for medical management after surgery. Patient reports feeling well when she came to the hospital today. Preop physical did not identify any significant perioperative concerns. Right knee arthroplasty performed 1 year ago without complications and she had a good recovery from that. Review of Systems Narrative: No recent health concerns, illness or injuries. 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 ?H04.129 - Dry eye syndrome of unspecified lacrimal gland (ICD-10) ?H02.889 - Meibomian gland dysfunction of unspecified eye, unspecified eyelid (ICD-10) Primary insomnia ?F51.01 - Primary insomnia (ICD-10) Left lumbar radiculitis ?M54.16 - Radiculopathy, lumbar region (ICD-10) Sacroiliac pain ?M53.3 - Sacrococcygeal disorders, not elsewhere classified (ICD-10) Hammertoe ?M20.40 - Other hammer toe(s) (acquired), unspecified foot (ICD-10) Presbyopia ?H52.4 - Presbyopia (ICD-10) 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 ?H43.813 - Vitreous degeneration, bilateral (ICD-10) Functional constipation ?K59.04 - Chronic idiopathic constipation (ICD-10) Hypercholesteremia ?E78.00 - Pure hypercholesterolemia, unspecified (ICD-10) Leiomyoma ?D21.9 - Benign neoplasm of connective and other soft tissue, unspecified (ICD-10) Mild aortic regurgitation ?I35.1 - Nonrheumatic aortic (valve) insufficiency (ICD-10) Squamous cell carcinoma Degeneration of lumbar or lumbosacral intervertebral disc ?M51.37 - Other intervertebral disc degeneration, lumbosacral region (ICD-10) Hyperlipidemia ?E78.5 - Hyperlipidemia, unspecified (ICD-10) Surgical History (Updated 03/30/24 @ 15:39 by Leonides Virk MD) History of arthroplasty of left knee ?Z96.652 - Presence of left artificial knee joint (ICD-10) History of total right knee replacement (04/01/23) ?Z96.651 - Presence of right artificial knee joint (ICD-10) H/O: hysterectomy ?Z90.710 - Acquired absence of both cervix and uterus (ICD-10) Status post left foot surgery (11/02/15) ?Z98.890 - Other specified postprocedural states (ICD-10) Social History (Updated 03/30/24 @ 15:37 by Leonides Virk MD) Narrative: She lives with her in [place]. They live in a ramp were home. One step into the garage and 1 step into the house. She does not smoke. She rarely drinks alcohol. What is your current living situation?: I presently have a place to live Problems where you live: no known problems In the past 12 months, utilities in danger of being shut off: no In past 12 months, lack of transportation kept you from medical appts, meetings, work, or getting things needed for daily living: yes In the past 12 mos, have been you worried that your food would run out before you had money to buy more?: never true In the past 12 mos, the food you bought just didn't last and you didn't have money to buy more?: never true Highest level of school completed/degree received: don't know Smoking Status: Never smoker Do you use any of these nicotine containing products: None Second hand tobacco smoke exposure: No How often do you have a drink containing alcohol: 2-4 times a month Alcohol type: wine AUDIT-C Alcohol total score: 2 Non-prescribed substance use: denies use Caffeine: No How often does anyone, including family, friends and others, physically hurt you : never How often does anyone, including family, friends and others, insult or talk down to you: never How often does anyone, including family, friends and others, threaten you with harm: never How often does anyone, including family, friends and others, scream or curse at you: never Meds Home Medications and Allergies Home Medications ?Medication ?Instructions ?Recorded ?Confirmed ?Type atorvastatin 20 mg tablet 20 mg PO DAILY 05/01/22 03/30/24 History acetaminophen 500 mg tablet 500 mg PO Q6H PRN 12/13/22 11/14/23 History (Tylenol Extra Strength) multivitamin 1 tab PO DAILY 03/28/23 03/30/24 History calcium carbonate (Calcium 600) 600 mg PO QDAY 07/18/23 03/30/24 History magnesium 250 mg tablet 500 mg PO QHS 07/18/23 03/30/24 History Allergies Allergy/AdvReac Type Severity Reaction Status Date / Time alendronate sodium Allergy Gastrointestinal Verified 03/30/24 09:40 Upset Exam Narrative: Exam Narrative: She is alert and appears in no distress. She has extra blankets on to warm her up. Eyes normal. Oropharynx with small airway. Neck is supple without mass or adenopathy. Respirations are clear to auscultation. Cardiovascular: S1, S2, regular rate and rhythm. Abdomen: Bowel sounds active. Abdomen is soft without tenderness or mass. Her block is just wearing off and she is just beginning to have movement in both feet and ankles. She has intact sensation in her feet. Knee incision is covered and clean and dry without marked swelling redness or bruising. Const: Vital Signs, click to edit/add: Vital Signs - 24 hr 03/30/24 10:06 03/30/24 11:25 03/30/24 11:30 Temperature 98.5 F Pulse Rate 69 65 67 Respiratory Rate 20 20 20 Blood Pressure 140/79 H 155/88 H 156/84 H Pulse Oximetry 97 100 100 Oxygen Delivery Me thod Room Air Nasal Cannula Nasal Cannula Oxygen Flow Rate 2 2 03/30/24 11:35 03/30/24 14:10 03/30/24 14:15 Temperature 97.7 F Pulse Rate 56 L 63 70 Respiratory Rate 20 14 14 Blood Pressure 127/74 107/64 107/66 Pulse Oximetry 99 96 96 Oxygen Delivery Me thod Room Air Nasal Cannula Nasal Cannula Oxygen Flow Rate 4 4 03/30/24 14:20 03/30/24 14:25 03/30/24 14:30 Temperature Pulse Rate 60 59 L 61 Respiratory Rate 14 16 16 Blood Pressure 117/70 118/72 126/79 Pulse Oximetry 97 97 95 Oxygen Delivery Me thod Nasal Cannula Room Air Room Air Oxygen Flow Rate 2 03/30/24 14:35 03/30/24 14:47 03/30/24 15:00 Temperature 97.2 F L 97.2 F L Pulse Rate 60 61 Respiratory Rate 16 16 Blood Pressure 117/97 H 144/87 H Pulse Oximetry 99 93 93 Oxygen Delivery Me thod Room Air Room Air Oxygen Flow Rate 03/30/24 15:00 Temperature Pulse Rate Respiratory Rate 16 Blood Pressure Pulse Oximetry 93 Oxygen Delivery Me thod Room Air Oxygen Flow Rate Documenting provider has reviewed patient's vital signs: yes Assessment and Plan Assessment and plan (1) History of arthroplasty of left knee: Problem comment: 03/30/2024, Dr. Holland, no complications Status: Acute Plan Anticipate routine management of pain and routine therapy. Discharge to home with . Monitor for complications of surgery or chronic medical problems while hospitalized.
[2024-03-30] MEDS: ATORVASTATIN 10 MG TABLET 20 MG PO (17:34)
[2024-03-30] MEDS: HYDROmorphone 2 MG TABLET PO (18:46)
[2024-03-30] MEDS: LACTATED RINGERS 500 ML 500 ML IV (18:47)
[2024-03-30] MEDS: ASPIRIN 81 MG TABLET EC PO (20:20)
[2024-03-30] MEDS: SENNOSIDES 1 TAB TABLET 2 TAB PO (20:20)
--- NOTE | 2024-03-30 23:42 | PC.NURSE ---
Pt friendly and cooperative, able to verbalize needs. C/o dizziness/lightheadedness during ambulation to the BR. Pt able to move to bed with assistance. No syncope, no LOC. Pt stated she felt much better lying flat, BP 90's/50's. MD updated and 500cc LR bolus given. Pt able to sit up and eat her dinner meal in bed. No c/o n/v. Pt later able to ambulate to BR with assist x1-2 with walker and GB without difficulty. PO dilaudid given for 7/10 pain in her left knee. Surgical dressing C,D,&I with active ice in place.
[2024-03-31] MEDS: HYDROmorphone 2 MG TABLET PO ×2 (00:58→07:40)
[2024-03-31 03:00] VITALS: BP 127/73; PULSE 65; RESP 16; TEMP 36.5; O2SAT 93
[2024-03-31] MEDS: CEFAZOLIN 2 GM in 0.9 % SODIUM CHLORIDE Mini-bag 100 ML IVPB (03:31)
[2024-03-31] MEDS: ACETAMINOPHEN 500 MG TABLET 1000 MG PO (05:15)
--- NOTE | 2024-03-31 06:14 | PC.NURSE ---
End of shift [id number]: Pt AXOX4, calm and pleasant. VSS on RA. Pt denies pain throughout the majority of shift. Pt requested pain medication and stated pain 6/10. Pt utilized ice to site, repositioning, and PRN pain medication. Relief noted. Pt stated dizziness upon gathering weight. Pt felt better after sitting down. Bindery Machine Feeder Offbearer encouraged slow position change. No nausea or vomiting present. Pt passing flatus. Surgical dressing CDI. Pt appears resting with call light in reach. ? ??
[2024-03-31 06:35] LABS: Hematocrit 31.9 % (33.0-51.0); Hemoglobin* 10.6 gm/dL (12.0-16.0); Immature Granulocytes Abs Auto 0.01 K/uL (0.00-0.30); Immature Granulocytes Pct Auto 0.1 %; Lymphocytes Percent Auto 12.4 % (20-44); Mean Corpuscular HGB Conc 33 gm/dL (32-36); Mean Corpuscular Hemoglobin 33 pg (26-34); Mean Corpuscular Volume 99 fL (80-100); Monocytes Percent Auto 6.5 % (0.0-11.0); Platelet Count* 159 K/uL (140-440); Red Blood Count 3.21 m/uL (4.00-5.20); White Blood Count* 7.58 K/uL (4.50-11.00)
[2024-03-31 06:41] LABS: Slide Review Reflex No
[2024-03-31 06:45] LABS: Sodium* 134 mmol/L (135-149)
[2024-03-31 06:46] LABS: Potassium* 4.4 mmol/L (3.6-5.1)
[2024-03-31 06:48] LABS: Creatinine* 0.6 mg/dL (0.5-1.5); Est. Creatinine Clearance* 40.38; Estimated Glomerular Filt Rate 91 ml/min
[2024-03-31 06:49] LABS: Blood Urea Nitrogen* 15 mg/dL (7-30)
[2024-03-31 07:31] VITALS: BP 130/75; PULSE 71; RESP 16; TEMP 36.7; O2SAT 96
[2024-03-31] MEDS: ASPIRIN 81 MG TABLET EC PO (07:40)
[2024-03-31] MEDS: SENNOSIDES 1 TAB TABLET 2 TAB PO (07:40)
[2024-03-31 08:57] VITALS: O2SAT 96
--- NOTE | 2024-03-31 10:19 | PM.ORPN ---
Subjective Subjective Date Seen: 03/31/24 Principal diagnosis: Status postop day 1 left total knee arthroplasty Interval history: Patient reports doing well. No acute events over night. Was reporting some lightheadedness and dizziness yesterday that has now improved today. Pain managed with scheduled and PRN medications, ice. During her right total knee, she did not do well with oxycodone. Now taking hydromorphone for pain without side effects. DVT prophylaxis: 81 mg aspirin by mouth twice daily, SCDs, walking. Denies fevers, chills, aches, N/V, CP, SOB/[place], or lightheadedness. Ortho Exam Narrative Exam Narrative: -Patient appears comfortable; no apparent acute distress -Alert and oriented times 3 -Operative knee mildly swollen; soft tissues supple; no ecchymosis; no erythematous streaking Warmth appropriate -Surgical dressing clean, dry, intact; no drainage -Bilateral calfs soft; no significant swelling, edema, tenderness, erythema, discoloration, warmth, or palpable cords -2+ DP/PT pulses, intact dermatomes and myotomes distally (5/5 strength) Const Vital Signs, click to edit/add: Vital Signs - 24 hr 03/30/24 11:25 03/30/24 11:30 03/30/24 11:35 Temperature Pulse Rate 65 67 56 L Pulse Rate [Bilateral Dorsalis Pedis] Pulse Rate [Right Pulse Oximeter] Respiratory Rate 20 20 20 Blood Pressure 155/88 H 156/84 H 127/74 Blood Pressure [Left Arm] Pulse Oximetry 100 100 99 Oxygen Delivery Method Nasal Cannula Nasal Cannula Room Air Oxygen Flow Rate 2 2 03/30/24 14:10 03/30/24 14:15 03/30/24 14:20 Temperature 97.7 F Pulse Rate 63 70 60 Pulse Rate [Bilateral Dorsalis Pedis] Pulse Rate [Right Pulse Oximeter] Respiratory Rate 14 14 14 Blood Pressure 107/64 107/66 117/70 Blood Pressure [Left Arm] Pulse Oximetry 96 96 97 Oxygen Delivery Method Nasal Cannula Nasal Cannula Nasal Cannula Oxygen Flow Rate 4 4 2 03/30/24 14:25 03/30/24 14:30 03/30/24 14:35 Temperature 97.2 F L Pulse Rate 59 L 61 60 Pulse Rate [Bilateral Dorsalis Pedis] Pulse Rate [Right Pulse Oximeter] Respiratory Rate 16 16 16 Blood Pressure 118/72 126/79 117/97 H Blood Pressure [Left Arm] Pulse Oximetry 97 95 99 Oxygen Delivery Method Room Air Room Air Room Air Oxygen Flow Rate 03/30/24 14:47 03/30/24 15:00 03/30/24 15:00 Temperature 97.2 F L Pulse Rate 61 Pulse Rate [Bilateral Dorsalis Pedis] Pulse Rate [Right Pulse Oximeter] Respiratory Rate 16 16 Blood Pressure 144/87 H Blood Pressure [Left Arm] Pulse Oximetry 93 93 93 Oxygen Delivery Method Room Air Room Air Oxygen Flow Rate 03/30/24 15:00 03/30/24 15:00 03/30/24 15:15 Temperature 97.1 F L 96.9 F L Pulse Rate 61 54 L Pulse Rate [Bilateral Dorsalis Pedis] Pulse Rate [Right Pulse Oximeter] 58 L Respiratory Rate 18 16 18 Blood Pressure 155/86 H 123/80 Blood Pressure [Left Arm] Pulse Oximetry 95 98 Oxygen Delivery Method Room Air Room Air Oxygen Flow Rate 03/30/24 15:30 03/30/24 15:45 03/30/24 16:15 Temperature Pulse Rate 53 L 58 L 79 Pulse Rate [Bilateral Dorsalis Pedis] Pulse Rate [Right Pulse Oximeter] Respiratory Rate 18 18 18 Blood Pressure 139/90 H 123/80 120/77 Blood Pressure [Left Arm] Pulse Oximetry 96 94 90 Oxygen Delivery Method Room Air Room Air Room Air Oxygen Flow Rate 03/30/24 16:45 03/30/24 17:15 03/30/24 19:00 Temperature 97.1 F L Pulse Rate 79 53 L 66 Pulse Rate [Bilateral Dorsalis Pedis] Pulse Rate [Right Pulse Oximeter] Respiratory Rate 18 18 18 Blood Pressure 127/72 94/54 L 120/73 Blood Pressure [Left Arm] Pulse Oximetry 96 90 93 Oxygen Delivery Method Room Air Room Air Room Air Oxygen Flow Rate 03/30/24 20:00 03/30/24 21:00 03/30/24 23:00 Temperature 97.8 F Pulse Rate 55 L 67 Pulse Rate [Bilateral Dorsalis Pedis] Pulse Rate [Right Pulse Oximeter] 74 Respiratory Rate 18 18 18 Blood Pressure 132/83 127/72 Blood Pressure [Left Arm] 122/90 H Pulse Oximetry 93 96 97 Oxygen Delivery Method Room Air Room Air Room Air Oxygen Flow Rate 03/30/24 23:00 03/30/24 23:00 03/31/24 03:00 Temperature 97.7 F Pulse Rate Pulse Rate [Bilateral Dorsalis Pedis] Pulse Rate [Right Pulse Oximeter] 65 Respiratory Rate 18 16 Blood Pressure Blood Pressure [Left Arm] 127/73 Pulse Oximetry 97 97 93 Oxygen Delivery Method Room Air Room Air Oxygen Flow Rate 03/31/24 07:31 03/31/24 08:57 03/31/24 08:57 Temperature 98.0 F Pulse Rate Pulse Rate [Bilateral Dorsalis Pedis] 71 Pulse Rate [Right Pulse Oximeter] Respiratory Rate 16 Blood Pressure Blood Pressure [Left Arm] 130/75 Pulse Oximetry 96 96 96 Oxygen Delivery Method Room Air Room Air Oxygen Flow Rate Assessment and Plan Assessment and plan (1) History of arthroplasty of left knee: Problem details: 03/30/2024, Dr. Holland, no complications Status: Acute Plan - Complete 23 hour perioperative antibiotics. - PT/OT consult for education and assistance. - Social work consult for discharge planning - Prescribed analgesics as needed - DVT prophylaxis: 81 mg aspirin by mouth twice daily, walking, and SCDs - Anticipation is for discharge to home with family/friends today 03/31/2024 if the patient remains medically stable, pain is controlled, and they are safe with mobilization.
--- NOTE | 2024-03-31 10:59 | PC.NURSE ---
Discharged home: PIV taken out and catheter intact. Incision clean dry and intact. CWMS good. Alert and oriented. Tolerating a regular diet. PT/OT completed. Lung sounds clear. VSS. Passing flatus. Voiding. Had some dizziness last evening but this is resolved now. Discharged with daughter and . Will have family support at home.
== END 2024-03-31 10:58 | disposition home or self-care (01) ==
LOC: OR 09:22 → MEDSURG 09:23
PROVIDERS: PCP Family Medicine; Visit Provider Orthopaedic Surgery Sports Medicine
PROC: (CPT 27447; principal; 2024-03-30 11:15)
DX: M17.12 Unilateral primary osteoarthritis, left knee (principal); G89.18 Other acute postprocedural pain; R42 Dizziness and giddiness; R73.03 Prediabetes
CPT/HCPCS: 27447; 01402; 36415; 64447; 64454; 73560; 76942; 82565; 84132; 84295; 84520; 85025; 97116; 97162; 97165; 97530; 97535; 99100; A9270; C1776; J0690; J1100; J2250; J2405; J2704; J2795; J3010; J7120

== ENCOUNTER 2024-04-29 13:00 | Outpatient (RCR) | payer MEDICARE, SELFPAY ==
--- NOTE | 2024-04-03 11:37 | PT.OPE ---
PT [place] Outpatient Eval PT [facility] Outpatient Eval Start: 03/31/24 15:04 Freq: Status: Active Protocol: Document 04/03/24 07:49 ENM (Rec: 04/03/24 11:18 ENM [id number]) E-signed By Maryann Engle, DPT Physical Therapy Outpatient Evaluation Insurance Information Recert Due Date 07/02/24 Insurance Name Medicare B Medical Diagnosis s/p L TKA DOS 03/30 presence of left artificial knee Treating Diagnosis left knee pain, impaired gait, impaired balance, impaired transfers, decreased knee ROM, muscle weakness Referring MD Holland Subjective Subjective Patient underwent a left knee replacement on 03/[address] Holland. She feels that she is doing pretty well, better than her last knee replacement . Has not been sleeping well in general, not because of the pain. Has done her exercises just once since being d/c. Took one of the oxycodone on Saturday and has not taken it since. Is taking tylenol extra strength every 6 hours, celebrex at morning/night as well a baby aspirin. Has also been icing for pain relief. Is getting around ok with the 2WW. Her goal is to get back to [facility] [employer] eventually and walking with her . PMHx: R knee replacement Mar 2023, arthritis, osteoporosis, low back pain Pain Comments 5-6/10 Current Work Status Retired Objective Other/Pertinent Objective Knee ROM L 0-6-75 R 0-0-118 strength: good quad set Mod A to complete SLR gait/balance: Patient ambulates with minimal reliance on 2WW for support, progressing step length throughout ambulation bout, decreased knee extension of LLE throughout gait cycle swelling/observation: mild bruising through martines, moderate bruising medial and lateral knee superior patella: L 54 cm R 49 mid patella: L 52cm R 47 inf patella: L 47cm R 42 cm Assessment Assessment/Impression Patient presents to PT for evaluation after L TKA DOS . She has been doing well after surgery getting around using her 2WW. Pain is rated at a 5-6/10 and managed with tylenol as well as ice. Primary complaint has been of dizziness and inability to sleep. Upon assessment patient displays decreased knee ROM, impaired gait, impaired transfers, decreased quad strength and swelling. Impairments consistent with s/ p L TKA. Knee ROM measured at 0-6-75 start of session. After exercises knee flexion improves to 90 degs. Global knee swelling measured at 5 cm after surgery. Lois would benefit from skilled PT to address impairments stated above for return to PLOF after left knee replacement. Primary Functional Limitations walking, laying, all mobility Plan of Care Rehabilitation Potential Good Physical Therapy Goals In 3-5 weeks: 1. Patient will improve knee ROM to > 105 for improved ease of STS transfers 2.Patient will ambulate with improved mechanics and less than 3/10 knee pain with or without AD >150' for improved household/community mobility 3. Patient will perform x10 SLR with improved form and strength to improve supine<> sit transfer In 6-8 weeks: 1. Patient will improve knee ROM to 120 degs in order to comfortably navigate stairs for household and community navigation 2. Patient will be able to walk up to 10 minutes without use of AD or report of increased knee pain 3. Patient will return to household duties without difficulty Coordination/Communication With Referral Source Treatment Plan/Direct Interventions Electrical Stimulation,Gait Training,Ice/Cold/ Vasopneumatic,Joint Mobilization,Manual Therapy, Neuromuscular Re-ed,Self-Care/ Home Management,Therapeutic Activities,Therapeutic Exercises Frequency/Duration 2x a week for 6 weeks, an additional 4-5 visits with decreasing frequency as needed Patient Will Be Discharged From Therapy Completion of LTG(s), Independent w/HEP Evaluation Billing Untimed Code Treatment Minutes 22 Complexity Low Certification Information Initial Certification Date 04/03/24 Ending Certification Date 07/02/24 Provider Signature Required Yes Provider Signature Shows Agreement With POC & Medical Necessity Physician NPI Number Write NPI# Here Physician Comment/Change : Physician Signature & Date Requested Please Sign/Date Here
== END 2024-07-27 15:29 | disposition home or self-care (01) ==
PROVIDERS: PCP Family Medicine; Visit Provider Orthopaedic Surgery Sports Medicine
DX: Z96.652 Presence of left artificial knee joint (principal); M25.562 Pain in left knee; R26.9 Unspecified abnormalities of gait and mobility; R26.81 Unsteadiness on feet; Z74.09 Other reduced mobility; M62.81 Muscle weakness (generalized); Z51.89 Encounter for other specified aftercare
CPT/HCPCS: 97016; 97110; 97140; 97161

== ENCOUNTER 2024-08-12 11:13 | Outpatient (CLI) | payer MEDICARE, BC, SELFPAY | END 2024-08-12 11:14 | disposition home or self-care (01) | LOC: MAMMO 11:16 | PROVIDERS: PCP Family Medicine; Visit Provider Family Medicine | DX: Z12.31 Encounter for screening mammogram for malignant neoplasm of breast (principal) | CPT/HCPCS: 77063; 77067 ==